=== PATIENT | male | born 1935 | race Caucasian/White ===

== ENCOUNTER 2020-02-19 09:36 | Outpatient (REF) | payer MEDICARE, MEDICAID, SELFPAY ==
[2020-02-19 11:44] LABS: MANUAL DIFF FLAG NO
[2020-02-19 11:56] LABS: Basophils Percent Auto 0.2 % (0-2); Eosinophils Absolute Auto 0.2 X10*3/uL (0.0-0.4); Eosinophils Percent Auto 1.3 % (0-4); Hematocrit 45.2 % (42-52); Hemoglobin 14.4 g/dl (14.0-18.0); Imm Gran Abs Auto 0.04 X10*3/uL (0.00-0.03); Imm Gran Pct Auto 0.4 % (0.0-0.4); Lymphocytes Absolute Auto 2.1 X10*3/uL (1.2-4.9); Lymphocytes Percent Auto 18.1 % (20-40); Mean Corpuscular HGB Conc 31.9 g/dl (31.0-36.0); Mean Corpuscular Hemoglobin 28.5 pg (27.0-33.0); Mean Corpuscular Volume 89.5 fL (80-98); Mean Platelet Volume 10.9 fL (9.4-12.4); Monocytes Absolute Auto 0.6 X10*3/uL (0.1-1.2); Monocytes Percent Auto 5.2 % (2-11); Neutrophils Absolute Auto 8.5 X10*3/uL (2.0-8.3); Neutrophils Percent Auto 74.8 % (45-73); Platelet Count 205 X10*3/uL (160-400); Red Blood Count 5.05 X10*6/uL (4.60-5.80); Red Cell Distribution Width 12.7 % (11.0-16.0); White Blood Count 11.3 X10*3/uL (4.8-10.8)
[2020-02-19 12:17] LABS: Alanine Aminotransferase 9 U/L (0-40); Albumin Level 4.1 g/dL (3.5-5.0); Alkaline Phosphatase 56 U/L (39-117); Anion Gap 10 (12-20); Aspartate Amino Transferase 14 U/L (5-37); Bilirubin Total 0.5 mg/dL (0.0-1.0); Blood Urea Nitrogen 23 mg/dL (9-16); Calcium 9.5 mg/dL (8.4-10.2); Carbon Dioxide 35 mmol/L (22-29); Chloride 101 mmol/L (96-108); Estimated Glomerular Filt Rate > 60; Glucose Random 128 mg/dL (60-115); Potassium 4.5 mmol/l (3.3-5.1); Sodium 141 mmol/L (135-145); Total Protein 6.8 g/dL (6.5-8.0)
[2020-02-19 12:37] LABS: Thyroid Stimulating Hormone 0.53 uIU/mL (0.32-4.0)
[2020-02-19 12:44] LABS: Erythrocyte Sedimentation Rate 6 MM/HR (0-15)
== END 2020-02-19 09:37 | disposition home or self-care (01) ==
LOC: HO.LAB 09:36
PROVIDERS: PCP Internal Medicine; Visit Provider Physician Assistant
DX: K59.09 Other constipation (principal); R10.11 Right upper quadrant pain; I10 Essential (primary) hypertension; R19.7 Diarrhea, unspecified; R63.4 Abnormal weight loss
CPT/HCPCS: 36415; 80053; 84443; 85025; 85652; Q3014

== ENCOUNTER → 2020-03-18 09:30 | Outpatient (BNVA) | payer MEDICARE, MEDICAID, SELFPAY | PROVIDERS: PCP Internal Medicine; Referring Provider Internal Medicine; Visit Provider Physician Assistant | DX: Z13.89 Encounter for screening for other disorder (principal) | CPT/HCPCS: Q3014 ==

== ENCOUNTER 2020-04-01 12:39 | Outpatient (REF) | payer MEDICARE, MEDICAID, SELFPAY ==
--- NOTE | 2020-04-01 12:42 | US_ITS ---
EXAMINATION: US SCROTUM CLINICAL INFORMATION: Scrotal pain. COMPARISON: None TECHNIQUE: A sonogram of the scrotum was performed assessing caputo-scale appearance and color Doppler flow. Spectral Doppler analysis of the arterial and venous flow were performed in the testes bilaterally. FINDINGS: RIGHT: Right testicle measures 4.1 x 1.9 x 2.2 cm, volume 9.2 mL. No small cyst is seen in the testes. Otherwise the testes are homogeneous. Spectral Doppler analysis of the arterial and venous flow is normal in the right testis. Right epididymal head is normal in size with a small epididymal head cyst measuring 0.1 0.1 x 0.1 cm. No right hydrocele or varicocele is seen. Right epididymal Doppler flow is normal. LEFT: Left testicle measures 3.7 x 1.9 x 2.8 cm, volume 10.6 mL. There is small anechoic cyst seen in the lower pole left testes.. Otherwise the testes are homogeneous. Spectral Doppler analysis of the arterial and venous flow is decreased in the left testis. The left testicle appeared twisted at the end of the exam with color flow preserved but decreased. Patient did have pain at this time in the left inguinal area. The left epididymal head is a cystic area seen No left hydrocele or varicocele is seen. Left epididymal Doppler flow is normal. US/US scrotum IMPRESSION: Bilateral testicular cysts. There is normal right testicular flow. There is diminished flow in the left testicle with intermittent torsion suspected. Right epididymal head cyst. Normal bilateral epididymal Doppler flow. Results were called to Tonya at Dr. Pulido's office.
== END 2020-04-01 12:40 | disposition home or self-care (01) ==
LOC: HO.US 12:39
PROVIDERS: PCP Internal Medicine; Visit Provider Internal Medicine
DX: N50.82 Scrotal pain (principal)
CPT/HCPCS: 76870

== ENCOUNTER → 2020-04-22 09:54 | Outpatient (BNVA) | payer MEDICARE, MEDICAID, SELFPAY | PROVIDERS: PCP Internal Medicine; Visit Provider Urology | DX: R10.32 Left lower quadrant pain (principal) | CPT/HCPCS: 81002; 99202 ==

== ENCOUNTER 2020-04-23 | Outpatient (REF) | payer MEDICARE, MEDICAID, SELFPAY | END 2020-04-23 00:01 | disposition home or self-care (01) | LOC: HO.VC | PROVIDERS: Visit Provider Internal Medicine | DX: Z23 Encounter for immunization (principal) | CPT/HCPCS: 0011A ==

== ENCOUNTER 2020-05-20 | Outpatient (REF) | payer MEDICARE, MEDICAID, SELFPAY | END 2020-05-20 00:01 | disposition home or self-care (01) | LOC: HO.VC | PROVIDERS: Visit Provider Internal Medicine | DX: Z23 Encounter for immunization (principal) | CPT/HCPCS: 0012A ==

== ENCOUNTER → 2020-06-10 09:30 | Outpatient (BNVA) | payer MEDICARE, MEDICAID, SELFPAY | PROVIDERS: PCP Internal Medicine; Visit Provider Urology | DX: Z13.89 Encounter for screening for other disorder (principal) | CPT/HCPCS: 99212 ==

== ENCOUNTER 2020-09-01 11:35 | Outpatient (REF) | payer MEDICARE, MEDICAID, SELFPAY ==
[2020-09-01 12:30] LABS: Hematocrit 42.7 % (42-52); Hemoglobin 13.8 g/dl (14.0-18.0); Mean Corpuscular HGB Conc 32.3 g/dl (31.0-36.0); Mean Corpuscular Hemoglobin 28.6 pg (27.0-33.0); Mean Corpuscular Volume 88.4 fL (80-98); Mean Platelet Volume 10.5 fL (9.4-12.4); Platelet Count 231 X10*3/uL (160-400); Red Blood Count 4.83 X10*6/uL (4.60-5.80); Red Cell Distribution Width 13.2 % (11.0-16.0); White Blood Count 11.6 X10*3/uL (4.8-10.8)
[2020-09-01 12:54] LABS: Alanine Aminotransferase 15 U/L (0-40); Albumin Level 4.4 g/dL (3.5-5.0); Alkaline Phosphatase 63 U/L (39-117); Anion Gap 11 (12-20); Aspartate Amino Transferase 18 U/L (5-37); Bilirubin Direct 0.3 mg/dL (0.0-0.5); Bilirubin Total 0.7 mg/dL (0.0-1.0); Blood Urea Nitrogen 24 mg/dL (9-16); Carbon Dioxide 31 mmol/L (22-29); Chloride 101 mmol/L (96-108); Cholesterol 205 mg/dL; Estimated Glomerular Filt Rate > 60; Glucose Random 70 mg/dL (60-115); HDL Cholesterol 72 mg/dL; LDL Cholesterol Calculated 117 mg/dl; Potassium 4.4 mmol/L (3.3-5.1); Sodium 139 mmol/L (135-145); Triglycerides 81 mg/dL
[2020-09-01 13:18] LABS: Thyroid Stimulating Hormone 0.53 uIU/mL (0.32-4.0)
[2020-09-05 17:02] LABS: Vitamin D 25-OH, D2 <4 ng/mL; Vitamin D 25-OH, D3 14 ng/mL; Vitamin D 25-OH, Total 14 ng/mL (30-100)
== END 2020-09-01 11:36 | disposition home or self-care (01) ==
LOC: HO.LAB 11:35
PROVIDERS: PCP Internal Medicine; Visit Provider Internal Medicine
DX: R30.0 Dysuria (principal); K59.09 Other constipation; R63.4 Abnormal weight loss
CPT/HCPCS: 36415; 80048; 80061; 80076; 82306; 84443; 85027; 87086

== ENCOUNTER → 2020-09-23 08:18 | Outpatient (BNVA) | payer MEDICARE, MEDICAID, SELFPAY | PROVIDERS: PCP Internal Medicine; Visit Provider Physician Assistant | DX: R63.4 Abnormal weight loss (principal); K59.09 Other constipation; K21.9 Gastro-esophageal reflux disease without esophagitis; Z78.9 Other specified health status | CPT/HCPCS: 99212 ==

== ENCOUNTER → 2020-11-11 08:12 | Outpatient (BNVA) | payer MEDICARE, MEDICAID, SELFPAY | PROVIDERS: PCP Internal Medicine; Visit Provider Physician Assistant | CPT/HCPCS: Q3014 ==

== ENCOUNTER 2021-05-04 11:15 | Outpatient (REF) | payer MEDICARE, MEDICAID, SELFPAY ==
[2021-05-04 12:48] LABS: Hematocrit 44.6 % (42.0-52.0); Hemoglobin 14.5 g/dl (14.0-18.0); Mean Corpuscular HGB Conc 32.5 g/dl (31.0-36.0); Mean Corpuscular Hemoglobin 28.7 pg (27.0-33.0); Mean Corpuscular Volume 88.1 fL (80.0-98.0); Mean Platelet Volume 10.6 fL (9.4-12.4); Platelet Count 184 X10*3/uL (160-400); Red Blood Count 5.06 X10*6/uL (4.60-5.80); White Blood Count 12.8 X10*3/uL (4.8-10.8)
[2021-05-04 13:14] LABS: Alanine Aminotransferase 14 U/L (0-40); Albumin Level 4.5 g/dL (3.5-5.0); Alkaline Phosphatase 55 U/L (39-117); Anion Gap 10 (12-20); Aspartate Amino Transferase 21 U/L (5-37); Bilirubin Direct 0.3 mg/dL (0.0-0.5); Bilirubin Total 0.8 mg/dL (0.0-1.0); Blood Urea Nitrogen 19 mg/dL (9-16); Calcium 10.1 mg/dL (8.4-10.2); Carbon Dioxide 35 mmol/L (22-29); Chloride 100 mmol/L (96-108); Cholesterol 187 mg/dL; Estimated Glomerular Filt Rate > 60; Glucose Random 83 mg/dL (60-115); HDL Cholesterol 67 mg/dL; LDL Cholesterol Calculated 103 mg/dl; Potassium 4.1 mmol/L (3.3-5.1); Sodium 141 mmol/L (135-145); Total Protein 7.2 g/dL (6.5-8.0); Triglycerides 86 mg/dL
[2021-05-04 13:36] LABS: Thyroid Stimulating Hormone 0.62 uIU/mL (0.32-4.0)
[2021-05-04 14:49] LABS: Appearance Urine CLEAR; Color Urine YELLOW; Glucose Urine UA NEG (NEG); Leukocyte Esterase Urine NEG (NEG); Nitrite Urine NEG (NEG); PH 5.5 (5.0-8.0); Specific Gravity - Urine >= 1.030 (1.005-1.025); Urine Blood NEG (NEG); Urine Ketones NEG (NEG); Urine Protein NEG (NEG-TRACE)
[2021-05-08 13:17] LABS: Vitamin D 25-OH, D2 77 ng/mL; Vitamin D 25-OH, D3 <4 ng/mL; Vitamin D 25-OH, Total 77 ng/mL (30-100)
== END 2021-05-04 11:16 | disposition home or self-care (01) ==
LOC: HO.LAB 11:15
PROVIDERS: Absent Provider Internal Medicine; PCP Internal Medicine; Referring Provider Internal Medicine; Visit Provider Physician Assistant
DX: K21.9 Gastro-esophageal reflux disease without esophagitis (principal); K58.9 Irritable bowel syndrome, unspecified; K59.09 Other constipation; F03.90 Unspecified dementia, unspecified severity, without behavioral disturbance, psychotic disturbance, mood disturbance, and anxiety; I10 Essential (primary) hypertension
CPT/HCPCS: 36415; 80048; 80061; 80076; 81003; 82306; 84443; 85027; 99212

== ENCOUNTER 2021-09-12 12:59 | Inpatient (IN) | payer MEDICARE, MEDICAID, SELFPAY ==
--- NOTE | ~2021-09-12 | CT_ITS ---
EXAMINATION: CT HEAD WITHOUT CONTRAST CLINICAL INFORMATION: Left-sided weakness. COMPARISON: None TECHNIQUE: Contiguous axial imaging was performed from the skull base to vertex without intravenous administration of contrast. This CT examination was performed using dose optimization techniques as appropriate, variously including the following: *Automated exposure control *Adjustment of mA and/or kV according to patient size (this includes techniques or standardized protocols for targeted exams where dose is matched to indication/reason for exam; i.e. extremities or head) *Use of iterative reconstruction technique DLP: 797 mGy-cm FINDINGS: There is no evidence of acute intracranial hemorrhage or acute territorial infarction. There is a subtle hypodensity in the right frontal deep white matter cortex slightly asymmetrically more prominent than the left side. This could be secondary to an old infarct or prominent small vessel disease. There is however periventrical hypodensities in both cerebral hemispheres from chronic small vessel ischemic changes. The lateral ventricles are enlarged and symmetrical. There is mild prominence of cortical sulci there is no abnormality seen in the posterior fossa.. Bone windows reveal no calvarial abnormality. No scalp soft tissue abnormality. Bilateral paranasal sinuses are well aerated and unremarkable. CT/CT head/brain wo con IMPRESSION: No acute intracranial process seen. Subtle hypodensity right frontal lobe deep white matter cortex likely old ischemic changes or chronic small vessel ischemia. There is no mass effect or edema. Age-related cerebral volume loss with chronic small vessel ischemic changes in both cerebral hemispheres.
--- NOTE | ~2021-09-12 | XR_ITS ---
EXAMINATION: XR CHEST CLINICAL INFORMATION: Hypoxia. COMPARISON: Chest radiograph 01/16/2007 TECHNIQUE: Frontal view of the chest was obtained. FINDINGS: Images are suboptimally oriented. Making allowances for suboptimal orientation, the cardiomediastinal silhouette is grossly normal. Mild blunting of the left costophrenic sulcus is noted. No pneumothoraces identified. No focal pulmonary consolidation visualized. Diffuse osteopenia. XR/XR chest 1V IMPRESSION: *Possible trace left pleural effusion; otherwise no definitive acute cardiopulmonary abnormalities identified. No focal pulmonary consolidation or evidence of active pulmonary edema.
--- NOTE | ~2021-09-12 | US_ITS ---
EXAMINATION: US EXTRACRANIAL CAROTID DUPLEX, BILATERAL CLINICAL INFORMATION: CVA COMPARISON: None TECHNIQUE: Real-time ultrasound and Doppler techniques (integrating B-mode 2-D vascular images, Doppler spectral analysis and color-flow Doppler imaging) were utilized to interrogate the extracranial carotid arteries, the vertebral arteries and proximal subclavian arteries bilaterally. The degree of stenosis is determined by criteria similar to NASCET. FINDINGS: Right Side: 1. There is soft atherosclerotic plaque seen in the bifurcation/proximal ICA region. 2. The common carotid artery PSV proximally is 64 cm/s and distally T8 cm/s. 3. The proximal internal carotid artery is occluded. 4. The proximal external carotid artery PSV is 149 cm/s. There is a hard plaque seen at the origin of right YOSEPH. 5. The vertebral artery shows antegrade flow. 6. The subclavian artery waveforms are normal. Left Side: 1. There is heart atherosclerotic plaque seen in the bifurcation/proximal ICA region. 2. The common carotid artery PSV proximally is 99 cm/s and distally 89 cm/s. 3. The proximal internal carotid artery velocities are 632 cm/s systolic and 294 cm/s diastolic. 4. The proximal external carotid artery PSV is 202 cm/s. 5. The vertebral artery shows 54 flow. 6. The subclavian artery waveforms are 74. US/US carotid duplex BI IMPRESSION: 1. 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 2. LEFT: 80/99% stenosis left carotid artery secondary to significant hard atherosclerotic plaque at the bulb and proximal ICA. 3. There is normal antegrade flow seen in both vertebral arteries with normal velocities in both subclavian arteries.
--- NOTE | ~2021-09-12 | MR_ITS ---
MRI OF THE BRAIN WITHOUT IV CONTRAST INDICATION: Left-sided weakness. COMPARISON: CTA head 09/13/2021. TECHNIQUE: Multiplanar multisequence MR imaging of the brain was obtained without IV contrast. FINDINGS: Multiple foci of restricted diffusion involving the right frontoparietal white matter, the left frontoparietal white matter and the left peritrigonal white matter suggesting acute infarcts in these areas. There is no mass effect and there is no hemorrhagic transformation. Nonspecific focal T2 signal changes involving the right temporal periventricular white matter on image 11 of series 5 that can be further assessed with postcontrast imaging. There is no hydrocephalus, extra-axial surface collection, or herniation. Loss of the distal cervical and portions of the intracranial right internal carotid artery flow void suggesting slow flow within versus occlusion of this vessel that can be further assessed with a CTA of the head and neck. There is no intracranial hemorrhage on the gradient recalled echo acquisition. The midline structures are normal. The cerebellar tonsils are normally positioned. The cerebellum and brainstem are normal. The craniocervical junction is normal. Osseous marrow signal intensity is homogenous. The visualized soft tissues are unremarkable. MR/MR head/brain wo con IMPRESSION: - Multiple foci of restricted diffusion involving the right frontoparietal white matter, the left frontoparietal white matter and the left peritrigonal white matter suggesting acute infarcts in these areas. There is no mass effect and there is no hemorrhagic transformation. - Loss of the distal cervical and portions of the intracranial right internal carotid artery flow void suggesting slow flow within versus occlusion of this vessel that can be further assessed with a CTA of the head and neck. - Nonspecific focal T2 signal changes involving the right temporal periventricular white matter on image 11 of series 5 that can be further assessed with postcontrast imaging. 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 Covering provider paged with these findings at 12:30 PM on 09/14/2021.
--- NOTE | ~2021-09-12 | CT_ITS ---
EXAMINATION: CT angio neck CLINICAL INFORMATION: Stroke. COMPARISON: Brain MRI 09/14/2021. TECHNIQUE: Production Lapping Machine Operator images were obtained. A CT angiogram of the neck was performed in the arterial phase after the intravenous administration of 70 mL Omnipaque 350. MIP reconstructions were generated in multiple orientations at the acquisition workstation. Multiple three-dimensional surface rendered images and maximum intensity projection images were generated on a dedicated 3-D lab workstation. Arterial stenoses are measured in accordance with NASCET criteria or similar method if applicable. This CT examination was performed using dose optimization techniques as appropriate, including one or more of the following: Automated exposure control, iterative reconstruction, and adjustment of technique factors (mA and/or kVp) according to patient size (this includes techniques or standardized protocols for targeted exams where dose is matched to indication/reason for exam). Total exam dose-length product 319 mGy-cm FINDINGS: CT angiogram neck: Scattered atheromatous calcification involves the aortic arch apex. There is a small amount of partially calcified predominantly lipid-laden atheromatous plaque at the origin of the left common carotid artery. Heavily calcified atheromatous plaque involves both carotid bifurcations. The right internal carotid artery is occluded at its origin and there is 50% stenosis at the origin of the left internal carotid artery. Lipid-laden plaque causes 50% stenosis at the origin of the left vertebral artery and 25% stenosis at the origin of the right vertebral artery. CT angiogram head: Atheromatous calcification involves the cavernous segments of both internal carotid arteries. The left intracranial internal carotid artery is patent. There is reconstitution of contrast filling the right internal carotid artery at its terminus most likely related to cross filling via the anterior communicating artery. The intradural vertebral artery segments and basilar artery are normal. Visualized portions of the anterior, middle, and posterior cerebral artery complexes are normal. Other: Soft tissues of the neck are unremarkable. There is multilevel degenerative spondylosis of the cervical spine. Grossly no evidence of spinal canal compromise. CT/CT angio neck IMPRESSION: Heavily calcified atheromatous plaque causes complete occlusion of the right internal carotid artery at its origin and there is reconstitution of contrast filling the right intracranial internal carotid artery at its terminus likely related to cross-filling via the anterior communicating artery. Heavily calcified atheromatous plaque causes 50% stenosis at the origin of the left internal carotid artery. There is also lipid-laden atheromatous plaque causing 50% stenosis at the left vertebral artery origin and 25% stenosis at the right vertebral artery origin. No intracranial large vessel occlusion.
--- NOTE | ~2021-09-12 | XR_ITS ---
EXAMINATION: XR ABDOMEN KUB CLINICAL INDICATION: Follow-up stool burden COMPARISON: None TECHNIQUE: AP view of the abdomen. FINDINGS: There is scattered gas and stool in the colon without distention. The small bowel loops loops are normal caliber. No gross bony abnormality. XR/XR KUB IMPRESSION: Mild constipation.
--- NOTE | ~2021-09-12 | CT_ITS ---
EXAMINATION: CT ABDOMEN AND PELVIS WITHOUT CONTRAST CLINICAL INFORMATION: Abdominal distention COMPARISON: None TECHNIQUE: Multidetector volumetric imaging was performed from the superior aspect of the liver through the pubic symphysis. Sagittal and coronal reformatted images were obtained on the technologist's workstation. This CT examination was performed using dose optimization techniques as appropriate, variously including the following: *Automated exposure control *Adjustment of mA and/or kV according to patient size (this includes techniques or standardized protocols for targeted exams where dose is matched to indication/reason for exam; i.e. extremities or head) *Use of iterative reconstruction technique DLP: 381 mGy-cm FINDINGS: LUNG BASES: The visualized lung bases are unremarkable. LIVER, GALLBLADDER, AND BILIARY TREE: The liver is normal in size, shape, and attenuation. No focal hepatic lesion or biliary ductal dilatation is present. The gallbladder is unremarkable with no evidence of radiopaque gallstones, gallbladder wall thickening, or obvious pericholecystic inflammatory changes. PANCREAS: Limited evaluation. No definitive finding. SPLEEN: Unremarkable. ADRENAL GLANDS: Unremarkable. KIDNEYS AND URETERS: Hydronephrosis in the kidneys. Ureters are prominent to the level of the bladder. Right renal cyst is noted BLADDER: Markedly distended GASTROINTESTINAL TRACT: The bowel pattern is overall felt to be nonobstructing. There is moderate stool in the colon and moderate rectosigmoid stool. ABDOMINAL WALL: No significant hernia is appreciated. LYMPH NODES: Normal. VASCULAR: Atherosclerotic changes PELVIC VISCERA: Mildly prominent prostate OSSEOUS STRUCTURES: Unremarkable. CT/CT abdomen pelvis wo con IMPRESSION: The bladder is markedly distended. There is hydronephrosis in the kidneys and ureters are prominent leading up to the bladder. The bowel pattern is felt to be overall obstructing. There is however moderate to marked rectosigmoid stool and moderate stool throughout the remainder the colon. Fleischner guidelines were followed.
[2021-09-12 13:10] VITALS: BP 99/64; PULSE 82; RESP 18; TEMP 36.4; O2SAT 94; BMI 19.7
--- NOTE | 2021-09-12 15:54 | ECG_ITS ---
Test Reason : ABD PAIN Blood Pressure : / mmHG Vent. Rate : 090 BPM Atrial Rate : 090 BPM P-R Int : 084 ms QRS Dur : 094 ms QT Int : 352 ms P-R-T Axes : 071 072 042 degrees QTc Int : 430 ms Sinus rhythm with short KS Nonspecific ST abnormality Abnormal ECG No previous ECGs available Referred By: Pat Manrique Electronically Signed By:GUANAKO MARTINEZ MD
--- NOTE | 2021-09-12 15:54 | ED.ABDPAIN ---
HPI - Abdominal Pain General Chief Complaint: Abdominal Pain Stated Complaint: Abd swelling/Constipated Time Seen by Provider: 09/12/21 16:40 Source: patient and family Mode of arrival: ambulatory Limitations: language barrier History of Present Illness HPI narrative: 86-year-old male presents with 6 days of constipation, has been using docusate sodium, suppositories, Mag citrate, and MiraLax. He has had episodes of constipation in the past, however usually lasts for 2 days. Patient's abdomen is distended. Has had poor p.o. intake and decreased urinary output over the past few days. Patient speaks German, patient's son is at bedside translating. No reports of fevers, chills, chest pain or pressure, weakness, cough, shortness breath. MD elicited complaint: abdominal pain Pertinent past history: constipation Onset (ago): day(s) (6) Pain Consistency: constant Location: diffuse Severity: severe Pain scale (0-10): 9 Quality: cramping, aching and fullness Radiation: none Migration to: no migration Exacerbating factors: eating and movement Relieving factors: nothing Associated symptoms: nausea, constipation and anorexia Related Data Previous Rx's Medication Instructions Recorded paroxetine HCl 20 mg tablet 20 mg PO BEDTIME #90 tabs 02/28/21 metoprolol succinate 25 mg 25 mg PO DAILY 90 days #90 tabs 05/19/21 tablet,extended release 24 hr ergocalciferol (vitamin D2) 1,250 1,250 mcg PO QWEEK #12 caps 05/20/21 mcg (50,000 unit) capsule simethicone 125 mg chewable tablet 125 mg PO TID-QID PRN abdominal 06/25/21 (Gas Relief (simethicone)) distention #90 tabs lisinopril 40 mg tablet 40 mg PO DAILY #90 tabs 07/06/21 simvastatin 40 mg tablet 40 mg PO DAILY #90 tabs 07/06/21 clonazepam 0.25 mg disintegrating 0.25 mg PO BID #60 tabs 07/29/21 tablet famotidine 20 mg tablet 20 mg PO DAILY PRN for indigestion 07/30/21 #90 tabs lactulose 10 gram/15 mL oral 10 g (15 mL) PO BEDTIME #237 mL 09/10/21 solution mirtazapine 7.5 mg tablet 7.5 mg PO BEDTIME #30 tabs 09/10/21 Allergies Allergy/AdvReac Type Severity Reaction Status Date / Time No Known Allergies Allergy Verified 09/10/21 13:35 Review of Systems Review of Systems Constitutional: No Fever, No Chills ENT/Mouth: No Ear Pain, No Hoarseness, No sore throat Eyes: No Eye Pain, No Swelling, No Redness, No Foreign Body Cardiovascular: No Chest Pain, No SOB Respiratory: No Cough, No Dyspnea Gastrointestinal: No Nausea, No Vomiting, No Diarrhea, No abdominal Pain Genitourinary: No Dysuria, No Hematuria Musculoskeletal: positive joint pain, No Myalgias, No Joint Swelling Skin: No Skin lacerations, No rash Neuro: No Weakness, No Numbness, No Paresthesias, No Loss of Consciousness, No Dizziness, No Headache Psych: No Anxiety/Panic, No Depression Heme/Lymph: no easy bruising, no Lymphadenopathy Endocrine: No Polyuria, No Polydipsia Yes all other systems are reviewed and are negative [facility] Past Medical History Attestation statement: The following information was validated with the patient. Source: old records reviewed Medical History GERD (gastroesophageal reflux disease) H/O urinary retention Urethral stricture Surgical History History of prostate surgery Family History Family History Father No problems noted. Mother No problems noted. Son No problems noted. Social History Social History Household Members Other:: lives with - adult children involved Housing: Apartment Alcohol intake: never Patient Tobacco Use Status: Former Tobacco user e-Cigarette/Vaping Use: Never Used Second Hand Smoke Exposure: No Advance Directives: No Advance Directives Information Provided: No service: No Current occupational status: retired Cognitive needs: No Hearing needs: No Vision needs: No Physical Exam ED Vital Signs: Vital Signs - 24 hr 09/12/21 13:10 09/12/21 15:59 09/12/21 18:12 Temperature 97.6 F 98.7 F 97.9 F Pulse Rate 82 90 89 Respiratory Rate 18 16 14 Blood Pressure 99/64 130/79 145/87 H Pulse Oximetry 94 98 95 Oxygen Delivery Method Room Air Room Air Room Air 09/12/21 18:58 09/12/21 20:00 Temperature 97.9 F 98.4 F Pulse Rate 84 90 Respiratory Rate 16 16 Blood Pressure 147/81 H 169/78 H Pulse Oximetry 98 95 Oxygen Delivery Method Room Air Room Air BMI result Body Mass Index 19.7 Appearance: Alert. Oriented X3. Moderate distress. Eyes: Pupils equal, round and reactive to light. ENT: Pharynx normal. Dry mucous membranes. Neck: Normal inspection. Neck supple. CVS: Normal heart rate and rhythm. Pulses normal. Respiratory: No respiratory distress. Breath sounds normal. Abdomen: Hard, distended, hyperactive bowel sounds. Skin: Skin warm and dry. Normal skin color. Normal skin turgor. Extremities: +2 edema bilaterally. Moves all extremities against resistance. Neuro: No motor deficit. No sensory deficit. Cranial nerves 2-12 intact Course Course Course Narrative: 86-year-old male presents with family at bedside for 6 days of constipation, abdominal distention, decreased urinary output, decreased p.o. intake, and discomfort. Family states that he normally has constipation but usually lasts for about 2 days. They have given him multiple [id number] medications and rectal suppositories with 0 effect. Patient's abdomen is distended, palpable bladder, most likely constipation with bladder outlet obstruction secondary to constipation. Will disimpact. 17:41 white count 21. Order for Zosyn, L of fluid was started at 17:[address]impaction. [address] abdomen pelvis is still pending. Moderate amount of soft brown stool on digital disimpaction. One Fleet enema and to soapsuds enemas given over the past 2 hours. Patient has evacuated water but has not been able to produce a significant bowel movement after disimpaction, Fleet's enema, and soapsuds enema. CT scan was completed status post disimpaction and enemas. Shows moderate amounts of stool with obstruction. Johnson catheter placed for fluid management, bilateral hydronephrosis noted most likely due to outlet obstruction. Discussion with hospitalist, plan of care is to admit for constipation with obstruction and bladder outlet obstruction secondary to constipation. Consultations Consultation #1: kylah Time: 20:42 MDM - Abdominal Pain Differential Diagnosis Differential diagnosis: Likely abdominal pain, bowel perforation, constipation and small bowel obstruction Medical Records Attestation: I reviewed the patient's medical records. Lab Data Attestation: I reviewed the patient's lab results. Result diagrams: 09/12/21 16:28 09/12/21 16:28 Labs: Lab Results 09/12/21 09/12/21 09/12/21 Range/Units 16:28 16:28 16:28 WBC 21.0 H (4.8-10.8) X10*3/uL RBC 4.14 L (4.60-5.80) X10*6/uL Hgb 11.8 L (14.0-18.0) g/dl Hct 38.1 L (42.0-52.0) % MCV 92.0 (80.0-98.0) fL MCH 28.5 (27.0-33.0) pg MCHC 31.0 (31.0-36.0) g/dl RDW 12.3 (11.0-16.0) % Plt Count 296 D (160-400) X10*3/uL MPV 9.9 (9.4-12.4) fL Immature Gran % (Auto) 1.6 H (0.0-0.4) % Neut % (Auto) 81.7 H (45-73) % Lymph % (Auto) 10.1 L (20-40) % [place] % (Auto) 5.8 (2-11) % Eos % (Auto) 0.6 (0-4) % Baso % (Auto) 0.2 (0-2) % Lymph # (Auto) 2.1 (1.2-4.9) X10*3/uL [place] # (Auto) 1.2 (0.1-1.2) X10*3/uL Eos # (Auto) 0.1 (0.0-0.4) X10*3/uL Baso # (Auto) 0.0 (0.0-0.2) X10*3/uL Abs Immat Gran (auto) 0.34 H (0.00-0.03) X10*3/uL Absolute Neuts (auto) 17.2 H (2.0-8.3) x10*3/uL Absolute Nucleated RBC 0.000 (0.0-0.012) X10*3/uL Nucleated RBC % (auto) 0.0 (0.0-0.2) /100WBC Sodium 141 (135-145) mmol/L Potassium 5.1 D (3.3-5.1) mmol/L Chloride 105 (96-108) mmol/L Carbon Dioxide 26 (22-29) mmol/L Anion Gap 15 (12-20) BUN 41 H D (9-16) mg/dL Creatinine 1.97 H (0.5-1.4) mg/dL Estim Creat Clear Calc 22.4 Estimated GFR 32 Random Glucose 90 (60-115) mg/dL Lactic Acid (0.5-2.0) mmol/L Calcium 9.3 D (8.4-10.2) mg/dL Magnesium 1.9 (1.6-2.6) mg/dL Total Bilirubin 0.3 (0.0-1.0) mg/dL Direct Bilirubin 0.2 (0.0-0.5) mg/dL AST 27 (5-37) U/L ALT 40 (0-40) U/L Alkaline Phosphatase 145 H D (39-117) U/L Troponin I High Sens 9.9 (<3.5-35.0) ng/L Total Protein 6.7 (6.5-8.0) g/dL Albumin 3.4 L D (3.5-5.0) g/dL Urine Color Urine Appearance Urine pH (5.0-8.0) Ur Specific [place] (1.005-1.025) Urine Protein (NEG-TRACE) MG/DL Urine Glucose (UA) (NEG) MG/DL Urine Ketones (NEG) MG/DL Urine Blood (NEG) Urine Nitrite (NEG) Ur Leukocyte Esterase (NEG) Urine RBC (0) /HPF Urine WBC (0-4) /HPF Ur Squamous Epith Cells /LPF Urine Bacteria /LPF 09/12/21 09/12/21 Range/Units 19:09 21:28 WBC (4.8-10.8) X10*3/uL RBC (4.60-5.80) X10*6/uL Hgb (14.0-18.0) g/dl Hct (42.0-52.0) % MCV (80.0-98.0) fL MCH (27.0-33.0) pg MCHC (31.0-36.0) g/dl RDW (11.0-16.0) % Plt Count (160-400) X10*3/uL MPV (9.4-12.4) fL Immature Gran % (Auto) (0.0-0.4) % Neut % (Auto) (45-73) % Lymph % (Auto) (20-40) % [place] % (Auto) (2-11) % Eos % (Auto) (0-4) % Baso % (Auto) (0-2) % Lymph # (Auto) (1.2-4.9) X10*3/uL [place] # (Auto) (0.1-1.2) X10*3/uL Eos # (Auto) (0.0-0.4) X10*3/uL Baso # (Auto) (0.0-0.2) X10*3/uL Abs Immat Gran (auto) (0.00-0.03) X10*3/uL Absolute Neuts (auto) (2.0-8.3) x10*3/uL Absolute Nucleated RBC (0.0-0.012) X10*3/uL Nucleated RBC % (auto) (0.0-0.2) /100WBC Sodium (135-145) mmol/L Potassium (3.3-5.1) mmol/L Chloride (96-108) mmol/L Carbon Dioxide (22-29) mmol/L Anion Gap (12-20) BUN (9-16) mg/dL Creatinine (0.5-1.4) mg/dL Estim Creat Clear Calc Estimated GFR Random Glucose (60-115) mg/dL Lactic Acid 0.9 (0.5-2.0) mmol/L Calcium (8.4-10.2) mg/dL Magnesium (1.6-2.6) mg/dL Total Bilirubin (0.0-1.0) mg/dL Direct Bilirubin (0.0-0.5) mg/dL AST (5-37) U/L ALT (0-40) U/L Alkaline Phosphatase (39-117) U/L Troponin I High Sens (<3.5-35.0) ng/L Total Protein (6.5-8.0) g/dL Albumin (3.5-5.0) g/dL Urine Color YELLOW Urine Appearance CLEAR Urine pH 6.0 (5.0-8.0) Ur Specific [place] 1.010 (1.005-1.025) Urine Protein 1+ H (NEG-TRACE) MG/DL Urine Glucose (UA) NEG (NEG) MG/DL Urine Ketones NEG (NEG) MG/DL Urine Blood 2+ H (NEG) Urine Nitrite NEG (NEG) Ur Leukocyte Esterase 3+ H (NEG) Urine RBC 5-9 H (0) /HPF Urine WBC 15-29 H (0-4) /HPF Ur Squamous Epith Cells TRACE /LPF Urine Bacteria 3+ /LPF Imaging Data CT scan - abdomen: Attestation: I personally reviewed and interpreted this imaging study as follows: Radiologist's impression: FINDINGS: LUNG BASES: The visualized lung bases are unremarkable.? LIVER, GALLBLADDER, AND BILIARY TREE: The liver is normal in size, shape, and attenuation. No focal hepatic lesion or biliary ductal dilatation is present. The gallbladder is unremarkable with no evidence of radiopaque gallstones, gallbladder wall thickening, or obvious pericholecystic inflammatory changes.? PANCREAS: Limited evaluation. No definitive finding. SPLEEN: Unremarkable.? ADRENAL GLANDS: Unremarkable.? KIDNEYS AND URETERS: Hydronephrosis in the kidneys. Ureters are prominent to the level of the bladder.? Right renal cyst is noted BLADDER: Markedly distended? GASTROINTESTINAL TRACT: The bowel pattern is overall felt to be nonobstructing. There is moderate stool in the colon and moderate rectosigmoid stool.? ABDOMINAL WALL: No significant hernia is appreciated.? LYMPH NODES: Normal. VASCULAR: Atherosclerotic changes PELVIC VISCERA: Mildly prominent prostate? OSSEOUS STRUCTURES: Unremarkable.? CT/CT abdomen pelvis wo con IMPRESSION: The bladder is markedly distended. There is hydronephrosis in the kidneys and ureters are prominent leading up to the bladder. ? The bowel pattern is felt to be overall obstructing. There is however moderate to marked rectosigmoid stool and moderate stool throughout the remainder the colon. ? ? ? Fleischner guidelines were followed. ECG Data Attestation: I personally reviewed and interpreted this ECG as follows: ECG interpretation date: 09/12/21 ECG interpretation time: 16:06 Prior ECG tracings: available for review Interpretation: Vent. rate 90 BPM RI interval 84 ms QRS duration 94 ms QT/QTc 352/430 ms P-R-T axes 71 72 42 Sinus rhythm with short RI Nonspecific ST abnormality Abnormal ECG No previous ECGs available Discharge Plan Discharge Clinical Impression: Constipation, Bladder outflow obstruction Patient Disposition: Admitted As Inpatient
[2021-09-12 15:59] VITALS: BP 130/79; PULSE 90; RESP 16; TEMP 37.1; O2SAT 98
[2021-09-12 16:34] LABS: MANUAL DIFF FLAG NO
[2021-09-12 16:41] LABS: Basophils Percent Auto 0.2 % (0-2); Eosinophils Absolute Auto 0.1 X10*3/uL (0.0-0.4); Eosinophils Percent Auto 0.6 % (0-4); Hematocrit 38.1 % (42.0-52.0); Hemoglobin 11.8 g/dl (14.0-18.0); Imm Gran Abs Auto 0.34 X10*3/uL (0.00-0.03); Imm Gran Pct Auto 1.6 % (0.0-0.4); Lymphocytes Absolute Auto 2.1 X10*3/uL (1.2-4.9); Lymphocytes Percent Auto 10.1 % (20-40); Mean Corpuscular Hemoglobin 28.5 pg (27.0-33.0); Mean Platelet Volume 9.9 fL (9.4-12.4); Monocytes Absolute Auto 1.2 X10*3/uL (0.1-1.2); Monocytes Percent Auto 5.8 % (2-11); Neutrophils Absolute Auto 17.2 x10*3/uL (2.0-8.3); Neutrophils Percent Auto 81.7 % (45-73); Platelet Count 296 X10*3/uL (160-400); Red Blood Count 4.14 X10*6/uL (4.60-5.80); Red Cell Distribution Width 12.3 % (11.0-16.0)
[2021-09-12] MEDS: Sodium Phosphate,Mono-Dibasic 133 ML ENEMA PR (16:45)
[2021-09-12 16:55] LABS: Alanine Aminotransferase 40 U/L (0-40); Albumin Level 3.4 g/dL (3.5-5.0); Alkaline Phosphatase 145 U/L (39-117); Anion Gap 15 (12-20); Aspartate Amino Transferase 27 U/L (5-37); Bilirubin Direct 0.2 mg/dL (0.0-0.5); Bilirubin Total 0.3 mg/dL (0.0-1.0); Blood Urea Nitrogen 41 mg/dL (9-16); Calcium 9.3 mg/dL (8.4-10.2); Carbon Dioxide 26 mmol/L (22-29); Chloride 105 mmol/L (96-108); Creatinine Clr Calc Pharmacy 22.4; Estimated Glomerular Filt Rate 32; Glucose Random 90 mg/dL (60-115); Magnesium 1.9 mg/dL (1.6-2.6); Potassium 5.1 mmol/L (3.3-5.1); Sodium 141 mmol/L (135-145); Total Protein 6.7 g/dL (6.5-8.0)
[2021-09-12 17:01] LABS: Troponin-I High Sensitivity 9.9 ng/L (<3.5-35.0)
--- NOTE | 2021-09-12 17:07 | PC.NURSE ---
Fleet enema administered by provider
[2021-09-12] MEDS: 0.9 % Sodium Chloride 1,000 ML 999 ML IVCONT (17:46)
[2021-09-12 18:12] VITALS: BP 145/87; PULSE 89; RESP 14; TEMP 36.6; O2SAT 95
--- NOTE | 2021-09-12 18:17 | PC.NURSE ---
antibiotic not started due to cultures needing to be drawn. Awaiting blood cultures.
--- NOTE | 2021-09-12 18:48 | PC.NURSE ---
pt a hard poke, difficult to obtain cultures, will need to hang ABX late following culture obtainment
[2021-09-12 18:58] VITALS: BP 147/81; PULSE 84; RESP 16; TEMP 36.6; O2SAT 98
[2021-09-12 19:26] LABS: Lactic Acid 0.9 mmol/L (0.5-2.0)
--- NOTE | 2021-09-12 19:32 | PC.NURSE ---
PATIENT WAS ASSISTED TO BEDSIDE COMMODE ,DID NOT POOP MUCH ,EMLEY WHEAT AND PROVIDER TROY AWARE ,PATIENT BACK IN BED .
[2021-09-12 20:00] VITALS: BP 169/78; PULSE 90; RESP 16; TEMP 36.9; O2SAT 95
[2021-09-12] MEDS: Piperacillin Sodium/Tazobactam 3.375 GM in 0.9 % Sodium Chloride 50 ML IV (20:19)
[2021-09-12] MEDS: Lidocaine HCl 2 % Urojet 10 ML JEL.PF.APP TOPICAL (20:53)
--- NOTE | 2021-09-12 21:24 | PC.NURSE ---
Johnson catheter placed per MD order. 2,300 ml of urine output noted. Dr Alcocer notified. Will monitor closely.
[2021-09-12 21:35] LABS: Appearance Urine CLEAR; Color Urine YELLOW; Glucose Urine UA NEG (NEG); Leukocyte Esterase Urine 3+ (NEG); Nitrite Urine NEG (NEG); UACC Culture Trigger YES; Urine Blood 2+ (NEG); Urine Ketones NEG (NEG); Urine Protein 1+ MG/DL (NEG-TRACE)
[2021-09-12 22:02] VITALS: BP 161/80; PULSE 89; RESP 16; TEMP 36.8; O2SAT 94
--- NOTE | 2021-09-12 22:04 | PM.IMHP ---
History of Present Illness Date of Service: 09/12/21 Chief Complaint: mireille This is an 86-year-old Belarusian speaking man with past medical history of hypertension, GERD, chronic constipation, depression anxiety who presents to the hospital with complaints of severe constipation. Patient last bowel movement was 7 days ago, patient was started on lactulose on Tuesday but has not had a bowel movement since. Patient reports abdominal pain, no nausea or vomiting, no chest pain, no shortness of breath, no headache or change in vision, reports decreased urine output, no dysuria, and no lower extremity edema. No fever or chills On initial arrival to the ED patient hemodynamically stable with no significant abnormal vitals Labs are significant for WBC count of WBC count of 21,000, hemoglobin 11.8, hematocrit 38.1, BUN of 41, creatinine of 1.97, with a baseline around 1.04, UA that is positive for leukocyte Estrace, WBC Abdominal pelvic CT showed distended bladder, hydronephrosis in the kidneys and uterus, obstructing bowel pattern, there is also moderate to marked rectosigmoid stool and moderate stool throughout the remainder of the colon. Patient was manually disimpacted in the ED, given multiple enemas but continues to be severely constipated Review of Systems Review of Systems: Yes all other systems are reviewed and are negative [facility] Medical History (Updated 09/13/21 @ 06:06 by Nkechi Ji MD) Chronic constipation Dementia Depression GERD (gastroesophageal reflux disease) H/O urinary retention HTN (hypertension) IBS (irritable bowel syndrome) Urethral stricture Family History Father No problems noted. Mother No problems noted. Son No problems noted. Surgical History History of prostate surgery Social History Household Members Other:: lives with - adult children involved Housing: Apartment Alcohol intake: never Patient Tobacco Use Status: Former Tobacco user Smoked in Last 30 Days: No e-Cigarette/Vaping Use: Never Used Patient Interested in Nicotine Replacement: No Patient Given Instructions on How to Stop Smoking: No Second Hand Smoke Exposure: No Advance Directives: No Advance Directives Information Provided: No service: No Current occupational status: retired Cognitive needs: No Hearing needs: No Vision needs: No Meds Allergies Allergy/AdvReac Type Severity Reaction Status Date / Time No Known Allergies Allergy Verified 09/10/21 13:35 Active Medications: Current Medications Pharmacy Consult (Consult Rx Perform Med Rec) 1 each MISCELLANE ONCE STA Stop: 09/12/21 20:41 Physical Exam Vital Signs and Narrative: Vital Signs: Last Vital Signs Temp 98.4 F 09/12/21 20:00 Pulse 90 09/12/21 20:00 Resp 16 09/12/21 20:00 BP 169/78 H 09/12/21 20:00 Pulse Ox 95 09/12/21 20:00 O2 Del Method 09/12/21 20:00 BMI result Body Mass Index 19.7 Const: General: cooperative and no acute distress Eyes: General: appearance normal, both eyes and all related structures Resp: Effort & Inspection: normal respiratory effort Auscultation: clear to auscultation bilaterally Cardio: Rate: regular rate Rhythm: regular rhythm GI: Other: Patient has a hard ball distension like in the lower abdomen, no rebound or guarding Palpation (GI): Soft to palpation Auscultation: normal bowel sounds Skin: General skin exam: no rashes or lesions noted Neuro: Cognition (Neuro): normal cognition Extrem: General: Yes normal to inspection and Yes no pedal edema Results Labs CBC and Chem 7: 09/12/21 16:28 09/12/21 16:28 Labs: Laboratory Results - last 24 hr 09/12/21 09/12/21 09/12/21 16:28 16:28 16:28 MCV 92.0 MCH 28.5 MCHC 31.0 RDW 12.3 Plt Count 296 D MPV 9.9 Immature Gran % (Auto) 1.6 H Neut % (Auto) 81.7 H Lymph % (Auto) 10.1 L [place] % (Auto) 5.8 Eos % (Auto) 0.6 Baso % (Auto) 0.2 Lymph # (Auto) 2.1 [place] # (Auto) 1.2 Eos # (Auto) 0.1 Baso # (Auto) 0.0 Abs Immat Gran (auto) 0.34 H Absolute Neuts (auto) 17.2 H Absolute Nucleated RBC 0.000 Nucleated RBC % (auto) 0.0 Anion Gap 15 Estim Creat Clear Calc 22.4 Estimated GFR 32 Random Glucose 90 Lactic Acid Calcium 9.3 D Magnesium 1.9 Total Bilirubin 0.3 Direct Bilirubin 0.2 AST 27 ALT 40 Alkaline Phosphatase 145 H D Troponin I High Sens 9.9 Total Protein 6.7 Albumin 3.4 L D Urine Color Urine Appearance Urine pH Ur Specific [place] Urine Protein Urine Glucose (UA) Urine Ketones Urine Blood Urine Nitrite Ur Leukocyte Esterase 09/12/21 09/12/21 19:09 21:28 MCV MCH MCHC RDW Plt Count MPV Immature Gran % (Auto) Neut % (Auto) Lymph % (Auto) [place] % (Auto) Eos % (Auto) Baso % (Auto) Lymph # (Auto) [place] # (Auto) Eos # (Auto) Baso # (Auto) Abs Immat Gran (auto) Absolute Neuts (auto) Absolute Nucleated RBC Nucleated RBC % (auto) Anion Gap Estim Creat Clear Calc Estimated GFR Random Glucose Lactic Acid 0.9 Calcium Magnesium Total Bilirubin Direct Bilirubin AST ALT Alkaline Phosphatase Troponin I High Sens Total Protein Albumin Urine Color YELLOW Urine Appearance CLEAR Urine pH 6.0 Ur Specific [place] 1.010 Urine Protein 1+ H Urine Glucose (UA) NEG Urine Ketones NEG Urine Blood 2+ H Urine Nitrite NEG Ur Leukocyte Esterase 3+ H Imaging Radiologist's Impressions: Impressions Abdomen/Pelvis CT 09/12/21 19:33 IMPRESSION: The bladder is markedly distended. There is hydronephrosis in the kidneys and ureters are prominent leading up to the bladder. The bowel pattern is felt to be overall obstructing. There is however moderate to marked rectosigmoid stool and moderate stool throughout the remainder the colon. Fleischner guidelines were followed. Assessment and Plan (1) Small bowel obstruction: Status: Acute (2) Bladder outflow obstruction: Status: Acute (3) Constipation: Status: Acute (4) UTI (urinary tract infection): Status: Acute (5) TYRESE (acute kidney injury): Status: Acute Plan 86-year-old male with past medical history of chronic constipation presents the hospital with constipation x7 days # severe constipation - has pattern of bowel obstruction on CT of the abdomen with marked rectosigmoid stool and moderate stool throughout the remainder of the colon - patient underwent manual fecal disimpaction in the ED with minimal relief - received 2 enemas with no BM - will start him on bowel regimen including MiraLax, docusate - patient has evidence of bowel obstruction, will keep NPO for now - consult GI # small-bowel obstruction - likely secondary to constipation - seen on CT with bowel obstruction pattern - will keep NPO - IV fluids # bladder outflow obstruction - due to severe constipation - patient also has a TI - status post Johnson catheter insertion # UTI - secondary to above - afebrile, has leukocytosis with no evidence of sepsis - will treat with IV antibiotics - follow cultures # TYRESE - likely postobstructive, , has hydronephrosis - due to severe constipation and bladder outflow obstruction - Johnson catheter in place - IV fluids - follow BMP # hypertension - stable - will hold lisinopril in the setting of TYRESE # depression anxiety - continue home medications DVT ppx: lovenox Need for admission and hospitalization: Pt has severe constipation causing TYRESE, and bladder outflow obstruction and will require a min 2 night hospital stay for further management and monitoring Quality Stroke Does the patient have a stroke diagnosis?: No VTE Prior VTE?: No VTE Risk Level:: Medical - low VTE Device Contraindication: Treatment Not Indicated VTE Drug Contraindication: Treatment Not Indicated
[2021-09-12 22:31] LABS: Bacteria Urine 3+ /LPF; Squamous Epithelial Cell Urine TRACE /LPF
[2021-09-12 22:34] LABS: COVID-19 Test Negative (Negative); IDNOW Serial# 55D5AD1C
[2021-09-12] MEDS: Docusate Sodium 100 MG CAPSULE PO (23:12)
[2021-09-12] MEDS: polyethylene glycoL 3350 17 GM POWD.PACK PO (23:12)
[2021-09-13] MEDS: 0.9 % Sodium Chloride Flush 3 ML SYRINGE IVFLUSH ×4 (01:33→20:48)
[2021-09-13 03:07] VITALS: BP 176/85; PULSE 103; RESP 18; TEMP 36.7; O2SAT 95
[2021-09-13] MEDS: cefTRIAXone sodium 1 GM in 0.9 % Sodium Chloride 50 ML IV (06:42)
[2021-09-13] MEDS: Lactated Ringers 1,000 ML 100 ML IVCONT (06:43)
[2021-09-13 07:19] LABS: MANUAL DIFF FLAG NO
--- NOTE | 2021-09-13 07:31 | PHA.MEDREC ---
Pharmacy Consult ? Medication Reconciliation Pharmacy has completed the medication reconciliation. Reviewed med rec done by Ninfa Montenegro.
[2021-09-13 07:40] LABS: Basophils Percent Auto 0.1 % (0-2); Eosinophils Absolute Auto 0.1 X10*3/uL (0.0-0.4); Eosinophils Percent Auto 0.4 % (0-4); Hematocrit 40.3 % (42.0-52.0); Hemoglobin 12.5 g/dl (14.0-18.0); Imm Gran Abs Auto 0.32 X10*3/uL (0.00-0.03); Imm Gran Pct Auto 1.6 % (0.0-0.4); Lymphocytes Absolute Auto 1.8 X10*3/uL (1.2-4.9); Lymphocytes Percent Auto 8.9 % (20-40); Mean Corpuscular Hemoglobin 28.1 pg (27.0-33.0); Mean Corpuscular Volume 90.6 fL (80.0-98.0); Mean Platelet Volume 9.9 fL (9.4-12.4); Monocytes Percent Auto 4.9 % (2-11); Neutrophils Percent Auto 84.1 % (45-73); Platelet Count 314 X10*3/uL (160-400); Red Blood Count 4.45 X10*6/uL (4.60-5.80); Red Cell Distribution Width 12.3 % (11.0-16.0); White Blood Count 20.2 X10*3/uL (4.8-10.8)
[2021-09-13 07:53] LABS: Anion Gap 16 (12-20); Blood Urea Nitrogen 37 mg/dL (9-16); Calcium 9.1 mg/dL (8.4-10.2); Carbon Dioxide 26 mmol/L (22-29); Chloride 107 mmol/L (96-108); Creatinine Clr Calc Pharmacy 27.1; Estimated Glomerular Filt Rate 40; Glucose Random 70 mg/dL (60-115); Potassium 4.7 mmol/L (3.3-5.1); Sodium 144 mmol/L (135-145)
[2021-09-13 08:00] VITALS: BP 175/85; PULSE 100; RESP 18; TEMP 36.6; O2SAT 93
[2021-09-13] MEDS: clonazePAM 0.5 MG TABLET 0.25 MG PO ×2 (09:38→20:46)
[2021-09-13] MEDS: Tamsulosin HCL 0.4 MG CAPSULE PO (09:39)
[2021-09-13] MEDS: polyethylene glycoL 3350 17 GM POWD.PACK PO (09:39)
[2021-09-13] MEDS: Atorvastatin Calcium 20 MG TABLET PO (09:39)
[2021-09-13] MEDS: Docusate Sodium 100 MG CAPSULE PO ×2 (09:39→20:46)
[2021-09-13 11:29] LABS: TSH reflex Free T4 1.11 uIU/mL (0.32-4.0)
--- NOTE | 2021-09-13 11:29 | PM.GICN ---
History of Present Illness Data of Consult Service Date: 09/13/21 Requesting physician: Nkechi Ji Primary Care Provider: Joel Christianson MD [facility] Reason for consult: severe constipation 86-year-old Bosnian speaking man with hypertension, GERD, chronic constipation, depression anxiety came to [facility] on 09/12/21 with severe constipation.? Patient's last bowel movement was 7 days ago, patient was started on lactulose on Tuesday but has not had a bowel movement since.? Patient reports abdominal pain, no nausea or vomiting, no chest pain, no shortness of breath, no headache or change in vision, reports decreased urine output, no dysuria, and no lower extremity edema.? No fever or chills On initial arrival to the ED patient hemodynamically stable with no significant abnormal vitals Labs are significant for WBC count of WBC count of 21,000, hemoglobin 11.8, hematocrit 38.1, BUN of 41, creatinine of 1.97, with a baseline around 1.04, UA that is positive for leukocyte Estrace, WBC Patient was manually disimpacted in the ED, given multiple enemas but continues to be severely constipated Pt was admitted and started on Colace 100 mg twice daily, Miralax once daily, lactulose at bedtime and MOM prn. Hx obtained from patient's daughter and son who were at the bedside. Daughter reports Pt was hospitalized at [facility] a month ago with weakness and found to be dehydrated. Pt noted to have left sided weakness since discharge from the hospital. Previously he had a BM every 1-2 days and no BM since last Tuesday - 09/06/21. Daughter denies pt having black stools or rectal bleeding. Brought to [facility] with marked abdominal distension which has improved since Johnson's catheter was placed. Pt has a good appetite and has lost 5 lbs over the past month (from 135 to 130 lbs) Pt is and lives with his . His 46 year old son Jan, 2020 with Covid and pt has been depressed and more forgetful since then. Pt quitted smoking 20 yrs ago and denies ETOH abuse. He snores at night and denies sleep apnea. 09/12/[address] SCAN SHOWED: The bladder is markedly distended. There is hydronephrosis in the kidneys and ureters are prominent leading up to the bladder. ? The bowel pattern is felt to be overall obstructing. There is however moderate to marked rectosigmoid stool and moderate stool throughout the remainder the colon. Review of Systems Review of Systems: Yes all other systems are reviewed and are negative Constitutional: Constitutional: Reports weakness and Reports weight loss Cardiovascular: Cardiovascular: Denies chest pain Gastrointestinal: Gastrointestinal: Denies hematochezia and Reports constipation Genitourinary: Genitourinary: Reports oliguria Neurologic: Reports focal weakness (left sided weakness) and Reports weakness PMFSH Past Medical History Medical History (Updated 09/13/21 @ 06:06 by Nkechi Ji MD) Chronic constipation Dementia Depression GERD (gastroesophageal reflux disease) H/O urinary retention HTN (hypertension) IBS (irritable bowel syndrome) Urethral stricture Family History Family History Father No problems noted. Mother No problems noted. Son No problems noted. Surgical History Surgical History History of prostate surgery Social History Social History Household Members Other:: lives with - adult children involved Housing: Apartment Alcohol intake: never Patient Tobacco Use Status: Former Tobacco user Smoked in Last 30 Days: No e-Cigarette/Vaping Use: Never Used Patient Interested in Nicotine Replacement: No Patient Given Instructions on How to Stop Smoking: No Second Hand Smoke Exposure: No Advance Directives: No Advance Directives Information Provided: No service: No Current occupational status: retired Cognitive needs: No Hearing needs: No Vision needs: No Meds Allergies Allergy/AdvReac Type Severity Reaction Status Date / Time No Known Allergies Allergy Verified 09/10/21 13:35 Active Medications: Current Medications Acetaminophen (Acetaminophen 325 Mg Tablet) 650 mg PO Q6H PRN PRN Reason: Pain, Mild (Pain Scale 1-3) Atorvastatin Calcium (Atorvastatin Calcium 20 Mg Tablet) 20 mg PO DAILY [facility] Last Admin: 09/13/21 09:39 Dose: 20 mg Clonazepam (Clonazepam 0.5 Mg Tablet) 0.25 mg PO BID [facility] Last Admin: 09/13/21 09:38 Dose: 0.25 mg Docusate Sodium (Docusate Sodium 100 Mg Capsule) 100 mg PO BID [facility] Last Admin: 09/13/21 09:39 Dose: 100 mg Ergocalciferol (Ergocalciferol (Vitamin D2) 1,250 Mcg Capsule) 1,250 mcg PO Fr [facility] Ceftriaxone Sodium 1 gm/ (Sodium Chloride) 50 mls @ 100 mls/hr IV Q24H [facility] Last Admin: 09/13/21 06:42 Dose: 100 mls/hr Lactulose (Lactulose 20 Gm/30 Ml Solution) 10 gm PO BEDTIME [facility] Magnesium Hydroxide (Milk Of Magnesia 30 Ml Oral.Susp) 30 ml PO DAILY PRN PRN Reason: Constipation Mineral Oil (Mineral Oil Enema 133 Ml Enema) 133 ml [place] DAILY PRN PRN Reason: constipation Mirtazapine (Mirtazapine 7.5 Mg Tablet) 7.5 mg PO BEDTIME [facility] Ondansetron HCl (Ondansetron Hcl 4 Mg/2 Ml Vial) 4 mg IVPUSH Q8H PRN PRN Reason: Nausea and Vomiting Paroxetine HCl (Paroxetine Hcl 20 Mg Tablet) 20 mg PO BEDTIME [facility] Polyethylene Glycol (Polyethylene Glycol 3350 17 Gm Powd.Pack) 17 gm PO DAILY [facility] Last Admin: 09/13/21 09:39 Dose: 17 gm Sodium Chloride (0.9 % Sodium Chloride Flush 3 Ml Syringe) 3 ml IVFLUSH QSHIFT [facility] Last Admin: 09/13/21 09:40 Dose: 3 ml Tamsulosin HCl (Tamsulosin Hcl 0.4 Mg Capsule) 0.4 mg PO DAILY [facility] Last Admin: 09/13/21 09:39 Dose: 0.4 mg Physical Exam Vital Signs: Vital Signs: Last Vital Signs Temp 97.9 F 09/13/21 08:00 Pulse 100 09/13/21 08:00 Resp 18 09/13/21 08:00 BP 175/85 H 09/13/21 08:00 Pulse Ox 93 09/13/21 08:00 O2 Del Method 09/13/21 08:00 BMI result Body Mass Index 19.7 Const: General: no acute distress and ill appearing Nutritional Appearance: underweight Orientation/consciousness: patient oriented x3 Limitations: language barrier and physical limitations HEENT: Head: Yes normal to inspection Ears: hearing grossly normal bilaterally Eyes: Sclerae: sclerae normal Pupils: Equal, round and reactive pupils present Neck: Neck: Yes normal visual inspection Chest: Chest palpation & inspection: normal inspection of the chest Resp: Effort & Inspection: normal respiratory effort Auscultation: clear to auscultation bilaterally Cardio: Palpation: normal PMI Rate: regular rate Rhythm: regular rhythm Heart sounds: S1 normal heart sound present, S2 normal heart sound present and no murmurs GI: Inspection: Yes distended Palpation (GI): Soft to palpation, nontender and No hepatosplenomegaly present Auscultation: normal bowel sounds Rectal Exam - Male: Yes deferred Skin: General skin exam: no rashes or lesions noted Neuro: General: patient oriented x3, gait normal and moves all extremities Cranial nerves: Yes Equal, round and reactive pupils present Extrem: General: Yes edema (trace pitting edema bilaterally) Psych: Appearance: grossly normal Mental Status: mental status grossly normal Results Labs CBC & Chem 7: 09/13/21 07:07 09/13/21 07:07 Labs: Short CBC 09/12/21 09/13/21 Range/Units 16:28 07:07 WBC 21.0 H 20.2 H (4.8-10.8) X10*3/uL Hgb 11.8 L 12.5 L (14.0-18.0) g/dl Hct 38.1 L 40.3 L (42.0-52.0) % Plt Count 296 D 314 (160-400) X10*3/uL BMP 09/12/21 09/13/21 16:28 07:07 Sodium 141 144 Potassium 5.1 D 4.7 Chloride 105 107 Carbon Dioxide 26 26 BUN 41 H D 37 H Creatinine 1.97 H 1.63 H Calcium 9.3 D 9.1 Liver Function 09/12/21 Range/Units 16:28 Total Bilirubin 0.3 (0.0-1.0) mg/dL Direct Bilirubin 0.2 (0.0-0.5) mg/dL AST 27 (5-37) U/L ALT 40 (0-40) U/L Alkaline Phosphatase 145 H D (39-117) U/L Albumin 3.4 L D (3.5-5.0) g/dL Urine 09/12/21 Range/Units 21:28 Urine Color YELLOW Urine Appearance CLEAR Urine pH 6.0 (5.0-8.0) Ur Specific Normanna 1.010 (1.005-1.025) Urine Protein 1+ H (NEG-TRACE) MG/DL Urine Glucose (UA) NEG (NEG) MG/DL Assessment and Plan (1) Constipation: Status: Acute (2) Acid reflux: Status: Acute Plan 86-year-old Bosnian speaking man with hypertension, GERD, chronic constipation, depression anxiety admitted to [facility] on 09/12/21 with urinary retention associated with severe constipation.? Constipation is likely due to colonic inertia and related to extrinsic compression of the colon due to acute urinary retention RECOMMENDATIONS: 1. Agree with continuing on a regular bowel program 2. Obtain KUB - if it shows excessive stool in the colon, pt can be treated with fleet or 500 ml of tap water enemas. 3. Colonoscopy can be scheduled as an outpatient once evaluation for urinary retention and left sided weakness has been completed. Procedures Date of Service Date of Service: 09/13/21
[2021-09-13 12:00] VITALS: BP 136/66; PULSE 96; RESP 18; TEMP 36.8; O2SAT 95
--- NOTE | 2021-09-13 13:46 | HO.PM.IMPN ---
Subjective Subjective Date of Service: 09/13/21 Interval History: cc: abd distension interval history:resolved distension, no BM, left hemiparesis Cardiovascular Cardiovascular: Reports no additional cardiovascular complaints Respiratory Respiratory: Reports no additional respiratory complaints Physical Exam Vital Signs: Vital Signs: Last Vital Signs Temp 98.3 F 09/13/21 12:00 Pulse 96 09/13/21 12:00 Resp 18 09/13/21 12:00 BP 136/66 09/13/21 12:00 Pulse Ox 95 09/13/21 12:00 O2 Del Method 09/13/21 12:00 BMI result Body Mass Index 19.7 General: AO X 2, no acute distress, frail Resp: rales bilateral, no accessory muscles used CVS: S1,S2,RRR GI: soft, non tender, non distended Neuro: left upper and lower 3/5 strength Psych: appropriate affect, impaired insight Objective Data Active Medications Acetaminophen (Acetaminophen 325 Mg Tablet) 650 mg PO Q6H PRN PRN Reason: Pain, Mild (Pain Scale 1-3) Atorvastatin Calcium (Atorvastatin Calcium 20 Mg Tablet) 20 mg PO DAILY [facility] Last Admin: 09/13/21 09:39 Dose: 20 mg Documented By: LASHA Clonazepam (Clonazepam 0.5 Mg Tablet) 0.25 mg PO BID [facility] Last Admin: 09/13/21 09:38 Dose: 0.25 mg Documented By: LASHA Docusate Sodium (Docusate Sodium 100 Mg Capsule) 100 mg PO BID [facility] Last Admin: 09/13/21 09:39 Dose: 100 mg Documented By: LASHA Ergocalciferol (Ergocalciferol (Vitamin D2) 1,250 Mcg Capsule) 1,250 mcg PO Fr [facility] Ceftriaxone Sodium 1 gm/ (Sodium Chloride) 50 mls @ 100 mls/hr IV Q24H [facility] Last Admin: 09/13/21 06:42 Dose: 100 mls/hr Documented By: KASSIDY Lactulose (Lactulose 20 Gm/30 Ml Solution) 10 gm PO BEDTIME [facility] Magnesium Hydroxide (Milk Of Magnesia 30 Ml Oral.Susp) 30 ml PO DAILY PRN PRN Reason: Constipation Mineral Oil (Mineral Oil Enema 133 Ml Enema) 133 ml [place] DAILY PRN PRN Reason: constipation Mirtazapine (Mirtazapine 7.5 Mg Tablet) 7.5 mg PO BEDTIME [facility] Ondansetron HCl (Ondansetron Hcl 4 Mg/2 Ml Vial) 4 mg IVPUSH Q8H PRN PRN Reason: Nausea and Vomiting Paroxetine HCl (Paroxetine Hcl 20 Mg Tablet) 20 mg PO BEDTIME [facility] Polyethylene Glycol (Polyethylene Glycol 3350 17 Gm Powd.Pack) 17 gm PO DAILY [facility] Last Admin: 09/13/21 09:39 Dose: 17 gm Documented By: LASHA Sodium Chloride (0.9 % Sodium Chloride Flush 3 Ml Syringe) 3 ml IVFLUSH QSHIFT [facility] Last Admin: 09/13/21 09:40 Dose: 3 ml Documented By: LASHA Tamsulosin HCl (Tamsulosin Hcl 0.4 Mg Capsule) 0.4 mg PO DAILY [facility] Last Admin: 09/13/21 09:39 Dose: 0.4 mg Documented By: LASHA Labs CBC & Chem 7: 09/13/21 07:07 09/13/21 07:07 Labs: Laboratory Results - last 24 hr 09/12/21 09/12/21 09/12/21 16:28 16:28 16:28 MCV 92.0 MCH 28.5 MCHC 31.0 RDW 12.3 Plt Count 296 D MPV 9.9 Immature Gran % (Auto) 1.6 H Neut % (Auto) 81.7 H Lymph % (Auto) 10.1 L [place] % (Auto) 5.8 Eos % (Auto) 0.6 Baso % (Auto) 0.2 Lymph # (Auto) 2.1 [place] # (Auto) 1.2 Eos # (Auto) 0.1 Baso # (Auto) 0.0 Abs Immat Gran (auto) 0.34 H Absolute Neuts (auto) 17.2 H Absolute Nucleated RBC 0.000 Nucleated RBC % (auto) 0.0 Anion Gap 15 Estim Creat Clear Calc 22.4 Estimated GFR 32 Random Glucose 90 Lactic Acid Calcium 9.3 D Magnesium 1.9 Total Bilirubin 0.3 Direct Bilirubin 0.2 AST 27 ALT 40 Alkaline Phosphatase 145 H D Troponin I High Sens 9.9 Total Protein 6.7 Albumin 3.4 L D TSH Urine Color Urine Appearance Urine pH Ur Specific [place] Urine Protein Urine Glucose (UA) Urine Ketones Urine Blood Urine Nitrite Ur Leukocyte Esterase Urine RBC Urine WBC Ur Squamous Epith Cells Urine Bacteria COVID-19 ([facility]) COVID-19 Clin Com 06/25/22 06/25/22 06/25/22 19:09 21:28 22:09 MCV MCH MCHC RDW Plt Count MPV Immature Gran % (Auto) Neut % (Auto) Lymph % (Auto) [place] % (Auto) Eos % (Auto) Baso % (Auto) Lymph # (Auto) [place] # (Auto) Eos # (Auto) Baso # (Auto) Abs Immat Gran (auto) Absolute Neuts (auto) Absolute Nucleated RBC Nucleated RBC % (auto) Anion Gap Estim Creat Clear Calc Estimated GFR Random Glucose Lactic Acid 0.9 Calcium Magnesium Total Bilirubin Direct Bilirubin AST ALT Alkaline Phosphatase Troponin I High Sens Total Protein Albumin TSH Urine Color YELLOW Urine Appearance CLEAR Urine pH 6.0 Ur Specific [place] 1.010 Urine Protein 1+ H Urine Glucose (UA) NEG Urine Ketones NEG Urine Blood 2+ H Urine Nitrite NEG Ur Leukocyte Esterase 3+ H Urine RBC 5-9 H Urine WBC 15-29 H Ur Squamous Epith Cells TRACE Urine Bacteria 3+ COVID-19 ([facility]) Negative COVID-19 Clin Com See Note 09/13/21 09/13/21 07:07 07:07 MCV 90.6 MCH 28.1 MCHC 31.0 RDW 12.3 Plt Count 314 MPV 9.9 Immature Gran % (Auto) 1.6 H Neut % (Auto) 84.1 H Lymph % (Auto) 8.9 L [place] % (Auto) 4.9 Eos % (Auto) 0.4 Baso % (Auto) 0.1 Lymph # (Auto) 1.8 [place] # (Auto) 1.0 Eos # (Auto) 0.1 Baso # (Auto) 0.0 Abs Immat Gran (auto) 0.32 H Absolute Neuts (auto) 17.0 H Absolute Nucleated RBC 0.000 Nucleated RBC % (auto) 0.0 Anion Gap 16 Estim Creat Clear Calc 27.1 Estimated GFR 40 Random Glucose 70 Lactic Acid Calcium 9.1 Magnesium Total Bilirubin Direct Bilirubin AST ALT Alkaline Phosphatase Troponin I High Sens Total Protein Albumin TSH 1.11 Urine Color Urine Appearance Urine pH Ur Specific [place] Urine Protein Urine Glucose (UA) Urine Ketones Urine Blood Urine Nitrite Ur Leukocyte Esterase Urine RBC Urine WBC Ur Squamous Epith Cells Urine Bacteria COVID-19 ([facility]) COVID-19 Clin Com Microbiology Microbiology Results: Microbiology 06/25/22 Unknown Urine Culture - Preliminary Urine clean catch - Urine caputo top Culture too young to evaluate. Assessment and Plan (1) TYRESE (acute kidney injury): Status: Acute Plan 86M presented with abdominal distension abdominal distention likely more related to urinary obstruction complicated by bilateral hydronephrosis and TYRESE s/p granado, (2.3L residual) continue granado, added flomax, outpatient chronic constipation conitnue lactulose, miralax, enema prn, gi following follow up KUB uti due to obstruction rocephin, follow up cultures left hemiparesis about 1 month of symptoms, suspect had CVA at that time check CT head continue statin start aspirin if cva confirmed will do carotids, echo APPLICATION DEVELOPMENT DIRECTOR eval dvt prophyalxis - mechanical due to hematuria full code reason for continued hospitalization: abimael deshpande up for left hemiparesis, awaiting bowel function Quality Stroke Does the patient have a stroke diagnosis?: No VTE Prior VTE?: No VTE Risk Level:: Medical - low VTE Device Contraindication: Treatment Not Indicated VTE Drug Contraindication: Treatment Not Indicated
[2021-09-13 15:18] VITALS: BP 107/56; PULSE 96; RESP 17; TEMP 36.2; O2SAT 93
--- NOTE | 2021-09-13 16:37 | MHC.CM.PN ---
CM MET WITH PTS DAUGHTER AND SON AT BEDSIDE THEY REPORT THE PT WAS AT [facility] LAST MONTH AND WAS SET UP WITH [facility] WITH [facility]. THEY EXPRESSED MANY CONCERNS WITH THE SERVICES AND ASKED THAT THEY BE CANCELED THEY ARE ALSO REQUESTING ASSISTANCE WITH OBTAINING [facility] CM EXPLAINED THE PROCESS BUT ENCOURAGED THEM TO CONTACT THE AGENCY DIRECTLY TOMORROW PT LIVES WITH HIS BUT FAMILY HAS BEEN ASSISTING WITH HIS CARE OVER THE LAST MONTH+ PT USES [facility] FAMILY REPORTS PT HAS A HCP AND THEY WILL BRING A COPY TOMORROW PCP: DANIELLE PISANO DELIVERED CURRENT DC PLAN IS HOME WITH FAMILY SUPPORT PT IS [place] SPEAKING ONLY HOWEVER SON AND DAUGHTER SPEAK [place] AND ARE REPORTEDLY BOTH ON THE HCP
[2021-09-13 20:00] VITALS: BP 98/60; PULSE 97; RESP 18; TEMP 37.1; O2SAT 91
[2021-09-13] MEDS: Lactulose 20 GM/30 ML SOLUTION 10 GM PO (20:46)
[2021-09-13] MEDS: PARoxetine HCL 20 MG TABLET PO (20:46)
[2021-09-13] MEDS: Mirtazapine 7.5 MG TABLET PO (20:46)
[2021-09-13] MEDS: Acetaminophen 325 MG TABLET 650 MG PO (20:53)
[2021-09-14] VITALS (7 sets, daily range): BP systolic 80–120; BP diastolic 56–70; PULSE 92–108; RESP 16–30; TEMP 36.1–37; O2SAT 87–98
--- NOTE | 2021-09-14 05:05 | P.EN_ITS ---
Event Note Date of Service: 09/14/21 Event Note: hypoxia: Patient became hypoxic to mid 80s, requiring supplemental oxygen at 5 L- saturating 90%; coarse breath sounds Will obtain stat chest x-ray and D-dimer.
[2021-09-14] MEDS: cefTRIAXone sodium 1 GM in 0.9 % Sodium Chloride 50 ML IV (05:48)
[2021-09-14 06:07] LABS: Hematocrit 40.5 % (42.0-52.0); Hemoglobin 12.8 g/dl (14.0-18.0); Mean Corpuscular HGB Conc 31.6 g/dl (31.0-36.0); Mean Corpuscular Hemoglobin 28.6 pg (27.0-33.0); Mean Corpuscular Volume 90.6 fL (80.0-98.0); Mean Platelet Volume 9.8 fL (9.4-12.4); Platelet Count 309 X10*3/uL (160-400); Red Blood Count 4.47 X10*6/uL (4.60-5.80); Red Cell Distribution Width 12.3 % (11.0-16.0); White Blood Count 25.9 X10*3/uL (4.8-10.8)
[2021-09-14 06:25] LABS: Anion Gap 11 (12-20); Blood Urea Nitrogen 36 mg/dL (9-16); Calcium 8.6 mg/dL (8.4-10.2); Carbon Dioxide 31 mmol/L (22-29); Chloride 103 mmol/L (96-108); Creatinine Clr Calc Pharmacy 31.8; Estimated Glomerular Filt Rate 48; Glucose Fasting 134 mg/dL (60-99); Potassium 4.2 mmol/L (3.3-5.1); Sodium 141 mmol/L (135-145)
[2021-09-14 06:31] LABS: B Type Natriuretic Peptide 72 pg/mL (<100)
[2021-09-14 06:54] LABS: D Dimer High Sensitivity 346 NG/ML
--- NOTE | 2021-09-14 07:00 | CA_ITS ---
Transthoracic Echocardiogram Patient (Last, First, Middle): Aleta Trent, Gender: Male Date of : 1935 Age: 86 Procedure Date: 09/14/2021 Procedure Type: Transthoracic Echocardiogram [place] [facility] [place]: 172.72 cm Weight: 58.97 kg BSA: 1.70 m2 Heart Rate: bpm BP: 110 / 56 mmHg Laborer Tree Tapping: HEIDI Referring MD: Behzad Fraser MD Symptoms: ? cva Study Quality: Technically Difficult ECG Rhythm: Sinus Conclusions: - Several views are off axis but suspect grossly normal LVEF. - There is moderate calcification of the aortic valve. Possible mild aortic stenosis. Findings Left Ventricle Normal left ventricular cavity size. There is normal left ventricular wall thickness. Regional wall motion abnormalities can not be excluded due to suboptimal endocardial definition. Diastolic function is normal for age. Several views are off axis but suspect grossly normal LVEF. Right Ventricle Normal right ventricular cavity size and systolic function. Atria The left atrium was not well visualized. The right atrium is normal in size. Aortic Valve There is moderate calcification of the aortic valve. The mean gradient is 5 mmHg. Possible mild aortic stenosis. No significant regurgitation. Mitral Valve The mitral valve appears normal. There is trace mitral valve regurgitation. There is no mitral valve stenosis. Pulmonic Valve The pulmonic valve is likely normal. Tricuspid Valve Normal tricuspid valve structure. There is trace tricuspid valve regurgitation. There is no evidence of pulmonary hypertension. Great Vessels The aorta was not well visualized. There is mild dilatation of the sinuses of Valsalva measuring 4.13 cm. Venous The inferior vena cava is mildly dilated and collapses greater than 50% with inspiration. Pericardium/Pleural There is no evidence of pericardial effusion. Prior Study Comparison No prior study available for comparison. Measurements 2D Linear Measurements IVSd: 0.97 0.6-0.9/0.6-1.0 cm LVIDd: 3.82 3.9-5.3/4.2-5.9 cm LVIDd Index: 2.25 2.4-3.2/2.2-3.1 cm/m2 LVIDs: 2.17 2.0-3.6 cm LVPWd: 0.97 0.7-1.1 cm LA Diam: 2.80 2.7-3.8/3.0-4.0 cm LAIDs Index: 1.65 1.5-2.3 cm/m2 LV Mass: 141.09 67-162/88-224 g LV Mass Index: 82.99 43-95/49-115 g/m2 LVOT Diam: 2.00 3.0+(-)1.3 cm Mitral Valve MV Pk E: 0.49 MV PK A: 0.69 MV Decel Time: 112.00 E/A: 0.70 E'Lateral: 10.70 E'Medial: 6.74 E/E' Med: 7.30 E/E' Lat: 4.60 PHT: 33.00 MVA PHT: 6.67 Decel Jay: 4.40 Aortic Valve AoV Pk Kalpesh: 1.59 AoV Mn Kalpesh: 1.09 AoV VTI: 0.27 AoV Pk Grad: 10.00 Aov Mn Grad: 5.00 ZOË Cont.VTI: 1.62 LVOT LVOT Pk Kalpesh: 0.62 LVOT Mn Kalpesh: 0.39 LVOT VTI: 0.14 LVOT Pk Grad: 2.00 LVOT Mn Grad: 1.00 LVOT Diam: 2.00 LVOT Area: 3.14 Diastolic Function MV Pk E: 0.49 MV Pk A: 0.69 E/A: 0.70 E'Medial: 6.74 E/E' Med: 7.30 E' Laterial: 10.70 E/E' Lat: 4.60 Right Ventricle TAPSE (mm): 18.80 Tricuspid Valve TR Pk Kalpesh: 2.66 TR Pk Grad: 28.00 RA Press: 3.00 RVSP: 31.00 Great Vessels Aorta Sinus of Valsalva: 4.13 2.0-3.5 cm Updated in Other Vendor System with Status of Final Fito Redman MD electronically signed on 09/14/2021 11:15:00 AM with status of Final
[2021-09-14] MEDS: clonazePAM 0.5 MG TABLET 0.25 MG PO (08:41)
[2021-09-14] MEDS: polyethylene glycoL 3350 17 GM POWD.PACK PO (08:42)
[2021-09-14] MEDS: 0.9 % Sodium Chloride Flush 3 ML SYRINGE IVFLUSH ×3 (08:42→20:46)
[2021-09-14] MEDS: Atorvastatin Calcium 20 MG TABLET PO (08:42)
[2021-09-14] MEDS: Aspirin Enteric Coated 81 MG TABLET.DR PO (08:42)
[2021-09-14] MEDS: Tamsulosin HCL 0.4 MG CAPSULE PO (08:42)
[2021-09-14] MEDS: Docusate Sodium 100 MG CAPSULE PO (08:42)
--- NOTE | 2021-09-14 13:20 | HO.PM.IMPN ---
Subjective Subjective Date of Service: 09/14/21 Interval History: cc: abd distension interval history: obtunded Review of Systems Review of Systems: Yes Unobtainable due to mental condition Physical Exam Vital Signs: Vital Signs: Last Vital Signs Temp 97.6 F 09/14/21 12:00 Pulse 99 09/14/21 12:00 Resp 20 09/14/21 12:00 BP 115/63 09/14/21 12:00 Pulse Ox 92 09/14/21 12:00 O2 Del Method 09/14/21 12:00 O2 Flow Rate 4 09/14/21 12:00 BMI result Body Mass Index 19.7 General: obtunded but arouses to minimal tactile stimulus Resp: diminished, rhonchi bilateral, no accessory muscles used CVS: S1,S2,RRR GI: soft, non tender, non distended Neuro: left hemiparesis, obtunded Psych: impaired insight Objective Data Active Medications Acetaminophen (Acetaminophen 325 Mg Tablet) 650 mg PO Q6H PRN PRN Reason: Pain, Mild (Pain Scale 1-3) Last Admin: 09/13/21 20:53 Dose: 650 mg Documented By: AURELIO Aspirin (Aspirin Enteric Coated 81 Mg Tablet.) 81 mg PO DAILY [facility] Last Admin: 09/14/21 08:42 Dose: 81 mg Documented By: LASHA Atorvastatin Calcium (Atorvastatin Calcium 20 Mg Tablet) 20 mg PO DAILY [facility] Last Admin: 09/14/21 08:42 Dose: 20 mg Documented By: LASHA Clonazepam (Clonazepam 0.5 Mg Tablet) 0.25 mg PO BID [facility] Last Admin: 09/14/21 08:41 Dose: 0.25 mg Documented By: LASHA Docusate Sodium (Docusate Sodium 100 Mg Capsule) 100 mg PO BID [facility] Last Admin: 09/14/21 08:42 Dose: 100 mg Documented By: LASHA Ergocalciferol (Ergocalciferol (Vitamin D2) 1,250 Mcg Capsule) 1,250 mcg PO [facility] Ceftriaxone Sodium 1 gm/ (Sodium Chloride) 50 mls @ 100 mls/hr IV Q24H [facility] Last Infusion: 09/14/21 06:23 Dose: 0 mls/hr Documented By: AURELIO Lactulose (Lactulose 20 Gm/30 Ml Solution) 10 gm PO BEDTIME [facility] Last Admin: 09/13/21 20:46 Dose: 10 gm Documented By: AURELIO Magnesium Hydroxide (Milk Of Magnesia 30 Ml Oral.Susp) 30 ml PO DAILY PRN PRN Reason: Constipation Mineral Oil (Mineral Oil Enema 133 Ml Enema) 133 ml [place] DAILY PRN PRN Reason: constipation Mirtazapine (Mirtazapine 7.5 Mg Tablet) 7.5 mg PO BEDTIME [facility] Last Admin: 09/13/21 20:46 Dose: 7.5 mg Documented By: AURELIO Ondansetron HCl (Ondansetron Hcl 4 Mg/2 Ml Vial) 4 mg IVPUSH Q8H PRN PRN Reason: Nausea and Vomiting Paroxetine HCl (Paroxetine Hcl 20 Mg Tablet) 20 mg PO BEDTIME [facility] Last Admin: 09/13/21 20:46 Dose: 20 mg Documented By: AURELIO Polyethylene Glycol (Polyethylene Glycol 3350 17 Gm Powd.Pack) 17 gm PO DAILY [facility] Last Admin: 09/14/21 08:42 Dose: 17 gm Documented By: LASHA Sodium Chloride (0.9 % Sodium Chloride Flush 3 Ml Syringe) 3 ml IVFLUSH QSHIFT [facility] Last Admin: 09/14/21 08:42 Dose: 3 ml Documented By: LASHA Tamsulosin HCl (Tamsulosin Hcl 0.4 Mg Capsule) 0.4 mg PO DAILY [facility] Last Admin: 09/14/21 08:42 Dose: 0.4 mg Documented By: LASHA Labs CBC & Chem 7: 09/14/21 05:58 09/14/21 05:58 Labs: Laboratory Results - last 24 hr 09/14/21 09/14/21 09/14/21 05:58 05:58 05:58 MCV 90.6 MCH 28.6 MCHC 31.6 RDW 12.3 Plt Count 309 MPV 9.8 Absolute Nucleated RBC 0.000 Nucleated RBC % (auto) 0.0 D-Dimer High Sensitivty 346 Anion Gap 11 L Estim Creat Clear Calc 31.8 Estimated GFR 48 Fasting Glucose 134 H Calcium 8.6 B-Natriuretic Peptide 09/14/21 05:58 MCV MCH MCHC RDW Plt Count MPV Absolute Nucleated RBC Nucleated RBC % (auto) D-Dimer High Sensitivty Anion Gap Estim Creat Clear Calc Estimated GFR Fasting Glucose Calcium B-Natriuretic Peptide 72 Microbiology Microbiology Results: Microbiology 09/12/21 Unknown Urine Culture - Preliminary Urine clean catch - Urine caputo top Enterococcus/Streptococcus sp 09/12/21 19:09 Blood Culture - Preliminary Blood - Venous No growth after 24 hours. 09/12/21 18:52 Blood Culture - Preliminary Blood - Venous No growth after 24 hours. Assessment and Plan (1) TYRESE (acute kidney injury): Status: Acute Plan 86M presented with abdominal distension abdominal distention due to urinary obstruction complicated by bilateral hydronephrosis and TYRESE s/p granado, (2.3L residual) continue granado, added flomax, outpatient tyrese improved chronic constipation conitnue lactulose, miralax, enema prn, gi following follow up KUB metabolic encephalopathy, left hemiparesis MRI with multiple cvas of varying acuity continue asa, statin, neuro eval, [facility]IL[facility] BURNER, will get pt when more appriopriate likely component of hospital delerium uti due to obstruction urine culture strep/enterococcus rocephin, follow up cultures dvt prophyalxis - mechanical due to hematuria prognosis guarded - full code - discussed and confirmed with patient daughter reason for continued hospitalization: obtunded Quality Stroke Does the patient have a stroke diagnosis?: No VTE Prior VTE?: No VTE Risk Level:: Medical - low VTE Device Contraindication: Treatment Not Indicated VTE Drug Contraindication: Treatment Not Indicated
--- NOTE | 2021-09-14 14:05 | P.CNNE_ITS ---
History of Present Illness Data of Consult Service Date: 09/14/21 Primary Care Provider: Joel Christianson MD HPI Reason for consult: stroke 86 years old man with underlying diagnosis of dementia was brought to hospital for severe constipation. His belly imaging revealed large amount of stool and possibility of intestinal obstruction and also hydronephrosis. His chest x-ray reveals some pleural effusion. For change in mental status a CT scan of brain was done that did not reveal any acute abnormality. With left-sided weakness, an MRI of brain was performed that revealed bilateral ischemic infarctions and this consultation was requested. He was unable to provide any meaningful history. Review of Systems Review of Systems: Could not be done with [facility] Past Medical History Medical History (Updated 09/14/21 @ 14:08 by Naty Degroot MD) Chronic constipation Dementia Depression GERD (gastroesophageal reflux disease) H/O urinary retention HTN (hypertension) IBS (irritable bowel syndrome) Urethral stricture Family History Family History Father No problems noted. Mother No problems noted. Son No problems noted. Surgical History Surgical History History of prostate surgery Social History Social History Household Members Other:: lives with - adult children involved Housing: Apartment Alcohol intake: never Patient Tobacco Use Status: Former Tobacco user Smoked in Last 30 Days: No e-Cigarette/Vaping Use: Never Used Patient Interested in Nicotine Replacement: No Patient Given Instructions on How to Stop Smoking: No Second Hand Smoke Exposure: No Advance Directives: No Advance Directives Information Provided: No service: No Current occupational status: retired Cognitive needs: No Hearing needs: No Vision needs: No Meds Allergies Allergy/AdvReac Type Severity Reaction Status Date / Time No Known Allergies Allergy Verified 09/10/21 13:35 Active Medications: Current Medications Acetaminophen (Acetaminophen 325 Mg Tablet) 650 mg PO Q6H PRN PRN Reason: Pain, Mild (Pain Scale 1-3) Last Admin: 09/13/21 20:53 Dose: 650 mg Aspirin (Aspirin Enteric Coated 81 Mg Tablet.) 81 mg PO DAILY [facility] Last Admin: 09/14/21 08:42 Dose: 81 mg Atorvastatin Calcium (Atorvastatin Calcium 80 Mg Tablet) 80 mg PO DAILY [facility] Clonazepam (Clonazepam 0.5 Mg Tablet) 0.25 mg PO BID [facility] Last Admin: 09/14/21 08:41 Dose: 0.25 mg Clopidogrel Bisulfate (Clopidogrel Bisulfate 75 Mg Tablet) 75 mg PO DAILY [facility] Docusate Sodium (Docusate Sodium 100 Mg Capsule) 100 mg PO BID [facility] Last Admin: 09/14/21 08:42 Dose: 100 mg Ergocalciferol (Ergocalciferol (Vitamin D2) 1,250 Mcg Capsule) 1,250 mcg PO Fr [facility] Ceftriaxone Sodium 1 gm/ (Sodium Chloride) 50 mls @ 100 mls/hr IV Q24H [facility] Last Infusion: 09/14/21 06:23 Dose: Infused Lactulose (Lactulose 20 Gm/30 Ml Solution) 10 gm PO BEDTIME [facility] Last Admin: 09/13/21 20:46 Dose: 10 gm Magnesium Hydroxide (Milk Of Magnesia 30 Ml Oral.Susp) 30 ml PO DAILY PRN PRN Reason: Constipation Mineral Oil (Mineral Oil Enema 133 Ml Enema) 133 ml [place] DAILY PRN PRN Reason: constipation Mirtazapine (Mirtazapine 7.5 Mg Tablet) 7.5 mg PO BEDTIME [facility] Last Admin: 09/13/21 20:46 Dose: 7.5 mg Ondansetron HCl (Ondansetron Hcl 4 Mg/2 Ml Vial) 4 mg IVPUSH Q8H PRN PRN Reason: Nausea and Vomiting Paroxetine HCl (Paroxetine Hcl 20 Mg Tablet) 20 mg PO BEDTIME [facility] Last Admin: 09/13/21 20:46 Dose: 20 mg Polyethylene Glycol (Polyethylene Glycol 3350 17 Gm Powd.Pack) 17 gm PO DAILY [facility] Last Admin: 09/14/21 08:42 Dose: 17 gm Sodium Chloride (0.9 % Sodium Chloride Flush 3 Ml Syringe) 3 ml IVFLUSH QSHIFT [facility] Last Admin: 09/14/21 08:42 Dose: 3 ml Tamsulosin HCl (Tamsulosin Hcl 0.4 Mg Capsule) 0.4 mg PO DAILY [facility] Last Admin: 09/14/21 08:42 Dose: 0.4 mg Physical Exam Vital Signs: Vital Signs: Last Vital Signs Temp 97.6 F 09/14/21 12:00 Pulse 99 09/14/21 12:00 Resp 20 09/14/21 12:00 BP 115/63 09/14/21 12:00 Pulse Ox 92 09/14/21 12:00 O2 Del Method 09/14/21 12:00 O2 Flow Rate 4 09/14/21 12:00 BMI result Body Mass Index 19.7 Neuro: Other: very drowsy. With pain he open his eyes but did not make a conversation. There was no gaze deviation. Visual siegel were difficult to determine. Face seems symmetrical. There was no obvious abnormal posturing. Plantars were withdrawing. Exam was limited Results Labs CBC & Chem 7: 09/14/21 05:58 09/14/21 05:58 Labs: Short CBC 09/14/21 Range/Units 05:58 WBC 25.9 H (4.8-10.8) X10*3/uL Hgb 12.8 L (14.0-18.0) g/dl Hct 40.5 L (42.0-52.0) % Plt Count 309 (160-400) X10*3/uL BMP 09/14/21 05:58 Sodium 141 Potassium 4.2 Chloride 103 Carbon Dioxide 31 H BUN 36 H Creatinine 1.39 Calcium 8.6 MRI of brain revealed bilateral frontal lobe area somewhat border zone restricted area of diffusion that was larger on right side than left. [id number] diffuse atrophy was noted. 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 Microbiology Microbiology Results: Microbiology 09/12/21 Unknown Urine clean catch - Urine caputo top Urine Culture - Preliminary Enterococcus/Streptococcus sp 09/12/21 19:09 Blood - Venous Blood Culture - Preliminary No growth after 24 hours. 09/12/21 18:52 Blood - Venous Blood Culture - Preliminary No growth after 24 hours. Assessment and Plan (1) Cerebral infarction: Status: Acute 86 years old man who came to hospital for severe constipation. for change in mental status and left-sided weakness he had brain imaging that revealed bilateral ischemic infarctions, which were somewhat in border zone areas. carotid ultrasound revealed that his right carotid was occluded and left was significantly stenosed. His blood pressure has significantly dropped yesterday, which might have resulted in border zone areas of infarction with underlying severe carotid disease. Because of multiple associated medical issues, he was not a candidate for surgery at this time. For carotid disease and strokes, mainstay of management is a baby aspirin daily if possible, blood pressure management but avoiding hypotension and keeping blood pressure and high normal range and avoiding dehydration. This type of infarcts can result in weakness, which would be more so on the left side and also change in personality and cognition. Procedures Date of Service Date of Service: 09/14/21
--- NOTE | 2021-09-14 15:14 | MHC.SL.SWA ---
Speech Pathologist Impression: Oropharyngeal dysphagia Risk of Aspiration Due to: Neurological Condition Reduced Cognition Dysphasia Diet Status: Downgrade Liquid Consistency and Strategies for Safe Swallow: Liquid Intake Recommendation: NPO Solid Food Consistency: Dietary Recommendations: NPO Additional Modifications to Solid Foods: Overt s/s of aspiration w/ PO trials at bedside. Recommend NPO at this time. Notified , RN, RD. SAFE DEPOSIT ATTENDANT will continue to follow to re-assess. Oral Medication Intake: NPO Please contact the pharmacy regarding appropriate crushable or liquid drug formulations that are available whenever modified delivery is recommended. Supervision While Eating and Drinking for Safe Swallow: PO with SAFE DEPOSIT ATTENDANT Swallowing Recommended Treatments: Recommendation for Speech: Inpatient Speech Therapy Comment: SAFE DEPOSIT ATTENDANT will continue to follow. Frequency/Duration: Date Range for Service Req: Timeline to reassess: Container Repairer Clinican/Clinical Fellow: No Supervisory Statement: I have reviewed and agree with the student/clinical fellow's documentation: N/A Speech Language Pathologist: Marion Monsivais M.A., CCC-SAFE DEPOSIT ATTENDANT
[2021-09-14] MEDS: 0.9 % Sodium Chloride 1,000 ML 999 ML IV (16:04)
[2021-09-14] MEDS: Acetaminophen Supp 325 MG SUPP.RECT PR (23:05)
[2021-09-15] VITALS (7 sets, daily range): BP systolic 97–132; BP diastolic 45–85; PULSE 81–103; RESP 16–18; TEMP 36.4–37.2; O2SAT 95–100
[2021-09-15] MEDS: Lactated Ringers 1,000 ML 999 ML IV (00:30)
[2021-09-15] MEDS: cefTRIAXone sodium 1 GM in 0.9 % Sodium Chloride 50 ML IV (05:25)
[2021-09-15 06:47] LABS: Hematocrit 34.7 % (42.0-52.0); Hemoglobin 10.9 g/dl (14.0-18.0); Mean Corpuscular HGB Conc 31.4 g/dl (31.0-36.0); Mean Corpuscular Hemoglobin 28.8 pg (27.0-33.0); Mean Corpuscular Volume 91.8 fL (80.0-98.0); Mean Platelet Volume 10.4 fL (9.4-12.4); Platelet Count 260 X10*3/uL (160-400); Red Blood Count 3.78 X10*6/uL (4.60-5.80); Red Cell Distribution Width 12.3 % (11.0-16.0); White Blood Count 19.8 X10*3/uL (4.8-10.8)
[2021-09-15 07:08] LABS: Anion Gap 12 (12-20); Blood Urea Nitrogen 26 mg/dL (9-16); Calcium 8.2 mg/dL (8.4-10.2); Carbon Dioxide 29 mmol/L (22-29); Chloride 106 mmol/L (96-108); Estimated Glomerular Filt Rate > 60; Glucose Fasting 86 mg/dL (60-99); Potassium 4.4 mmol/L (3.3-5.1); Sodium 143 mmol/L (135-145)
--- NOTE | 2021-09-15 09:07 | P.CDIC_ITS ---
CDI Concurrent Query Documentation Clarification: PHYSICIAN'S DOCUMENTATION REQUEST Date of Query: 09/15/21907 Patient Name: Aleta Trent Admit Date: 09/13/21 Dear Doctor, A review of the medical record indicates additional documentation may be needed. Please review below and update the documentation accordingly. Clinical Indicators: Risk Factors/Clinical Indicators/Treatments Per Event note 09/14/21: hypoxia: ?Patient became hypoxic to mid 80s, requiring supplemental oxygen at 5 L-saturating 90%; coarse breath sounds Respiratory rate 28-30 Recognized standard criteria for respiratory failure includes: (Source: [facility] Hospitalist Jan 2013) ABGs (1 or more) Symptoms: ? PO2 <60 or RA SpO2 <91% ? Tachypnea, SOB, dyspnea ? PcO2 >50 and pH <7.35 ? Pallor or cyanosis ? pO2 decrease or pcO2 increase ? Anxiety or restlessness by 10 mm/Hg from baseline if known ? Use of accessory muscles ? Retractions (grunting in newborns) ? Unable to speak in complete sentences P/F ratio < 300 Supplemental O2 requirement of 40% or more Intubation is not required Clarify which of the following accurately represents the patient's respiratory status: * Acute respiratory failure * Acute respiratory distress * Hypoxia * Other (please specify) * Unable to determine Please include type if known: * Hypoxic * Hypercapnic * Hypoxic and hypercapnic * Unable to determine Use of terms such as suspected, likely, concern for, or probable (associated with a specific diagnosis that is being evaluated, monitored, or treated as if it exists) are acceptable and can be coded in the inpatient setting, when documented at the time of discharge. Thank you, Kina Nicholas RN Extension: [phone] Please use your independent medical judgment in providing your response. THIS QUERY IS PART OF THE PERMANENT MEDICAL RECORD Provider Response: Acute Respiratory Failure
--- NOTE | 2021-09-15 10:41 | P.PNIM_ITS ---
Subjective Subjective Date of Service: 09/15/21 Interval History: cc: abd distension interval history:abd distension resolved, weakness, thirsty Cardiovascular Cardiovascular: Reports no additional cardiovascular complaints Respiratory Respiratory: Reports no additional respiratory complaints Physical Exam Vital Signs: Vital Signs: Last Vital Signs Temp 98.4 F 09/15/21 08:00 Pulse 81 09/15/21 08:00 Resp 16 09/15/21 08:00 BP 130/66 09/15/21 08:00 Pulse Ox 99 09/15/21 08:00 O2 Del Method 09/15/21 08:00 O2 Flow Rate 4 09/15/21 08:00 BMI result Body Mass Index 19.7 General: much more alert today, still frail, ill appearing, lethargic Resp: diminished bilateral, no accessory muscles used CVS: S1,S2,RRR GI: soft, non tender, non distended Neuro: left hemiparesis, alert Psych: appropriate affect, impaired insight Objective Data Active Medications Acetaminophen (Acetaminophen 325 Mg Tablet) 650 mg PO Q6H PRN PRN Reason: Pain, Mild (Pain Scale 1-3) Last Admin: 09/13/21 20:53 Dose: 650 mg Documented By: AURELIO Aspirin (Aspirin Enteric Coated 81 Mg Tablet.Dr) 81 mg PO DAILY [facility] Last Admin: 09/14/21 08:42 Dose: 81 mg Documented By: LASHA Atorvastatin Calcium (Atorvastatin Calcium 80 Mg Tablet) 80 mg PO DAILY [facility] Clonazepam (Clonazepam 0.5 Mg Tablet) 0.25 mg PO BID [facility] Last Admin: 09/14/21 20:53 Dose: Not Given Documented By: ADITHYA Non-Admin Reason: NPO Clopidogrel Bisulfate (Clopidogrel Bisulfate 75 Mg Tablet) 75 mg PO DAILY [facility] Docusate Sodium (Docusate Sodium 100 Mg Capsule) 100 mg PO BID [facility] Last Admin: 09/14/21 20:54 Dose: Not Given Documented By: ADITHYA Non-Admin Reason: NPO Ergocalciferol (Ergocalciferol (Vitamin D2) 1,250 Mcg Capsule) 1,250 mcg PO Fr [facility] Ceftriaxone Sodium 1 gm/ (Sodium Chloride) 50 mls @ 100 mls/hr IV Q24H [facility] Last Infusion: 09/15/21 06:10 Dose: 0 mls/hr Documented By: ADITHYA Lactulose (Lactulose 20 Gm/30 Ml Solution) 10 gm PO BEDTIME [facility] Last Admin: 09/14/21 20:54 Dose: Not Given Documented By: ADITHYA Non-Admin Reason: NPO Magnesium Hydroxide (Milk Of Magnesia 30 Ml Oral.Susp) 30 ml PO DAILY PRN PRN Reason: Constipation Midodrine (Midodrine Hcl 5 Mg Tablet) 5 mg PO TID [facility] Mineral Oil (Mineral Oil Enema 133 Ml Enema) 133 ml [place] DAILY PRN PRN Reason: constipation Mirtazapine (Mirtazapine 7.5 Mg Tablet) 7.5 mg PO BEDTIME [facility] Last Admin: 09/14/21 20:54 Dose: Not Given Documented By: ADITHYA Non-Admin Reason: NPO Ondansetron HCl (Ondansetron Hcl 4 Mg/2 Ml Vial) 4 mg IVPUSH Q8H PRN PRN Reason: Nausea and Vomiting Paroxetine HCl (Paroxetine Hcl 20 Mg Tablet) 20 mg PO BEDTIME [facility] Last Admin: 09/14/21 20:54 Dose: Not Given Documented By: ADITHYA Non-Admin Reason: NPO Polyethylene Glycol (Polyethylene Glycol 3350 17 Gm Powd.Pack) 17 gm PO DAILY [facility] Last Admin: 09/14/21 08:42 Dose: 17 gm Documented By: LASHA Sodium Chloride (0.9 % Sodium Chloride Flush 3 Ml Syringe) 3 ml IVFLUSH QSHIFT [facility] Last Admin: 09/15/21 08:43 Dose: Not Given Documented By: TARIK Non-Admin Reason: assessed Tamsulosin HCl (Tamsulosin Hcl 0.4 Mg Capsule) 0.4 mg PO DAILY [facility] Last Admin: 09/14/21 08:42 Dose: 0.4 mg Documented By: LASHA Labs CBC & Chem 7: 09/15/21 06:22 09/15/21 06:22 Labs: Laboratory Results - last 24 hr 09/15/21 09/15/21 06:22 06:22 MCV 91.8 MCH 28.8 MCHC 31.4 RDW 12.3 Plt Count 260 MPV 10.4 Absolute Nucleated RBC 0.000 Nucleated RBC % (auto) 0.0 Anion Gap 12 Estim Creat Clear Calc 46.0 Estimated GFR > 60 Fasting Glucose 86 D Calcium 8.2 L Microbiology Microbiology Results: Microbiology 09/12/21 Unknown Urine Culture - Final Urine clean catch - Urine caputo top Aerococcus urinae 09/12/21 19:09 Blood Culture - Preliminary Blood - Venous No growth after 48 hours. 09/12/21 18:52 Blood Culture - Preliminary Blood - Venous No growth after 48 hours. Assessment and Plan (1) TYRESE (acute kidney injury): Status: Acute Plan 86M presented with abdominal distension abdominal distention due to recurrent urinary obstruction complicated by bilateral hydronephrosis and TYRESE s/p granado, (2.3L residual) continue granado, added flomax, outpatient tyrese resolved chronic constipation continue lactulose, miralax, enema prn, gi following was likely due to bladder distension acute hypoxic respiratory failure due to aspiration pneumonitis vs aspiration pneumonia not spesis, hypotension from dehydration, poor intake metabolic encephalopathy, left hemiparesis 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 contine DAPL, statin avoid hypotension, will add midodrine to maintain cerebral perfusion follow up ADMINISTRATIVE NURSING SUPERVISOR, PT (family would prefer to have patient at home) uti due to obstruction urine culture aerococcus rocephin day 3 hematuria due to baldder decompression, monitor cbc dvt prophyalxis - mechanical due to hematuria prognosis guarded - full code - discussed and confirmed with patient daughter and son reason for continued hospitalization: fluctuating mental status, bps, ongoing ADMINISTRATIVE NURSING SUPERVISOR eval, hematuria Quality Stroke Does the patient have a stroke diagnosis?: No VTE Prior VTE?: No VTE Risk Level:: Medical - low VTE Device Contraindication: Treatment Not Indicated VTE Drug Contraindication: Treatment Not Indicated
--- NOTE | 2021-09-15 10:42 | MHC.STROKE ---
PATIENT ARRIVED IN ED WALK-IN 09/12/21 AT 1259, ON 09/13/21 CT HEAD WAS ORDERED FOR LEFT SIDED WEAKNESS, FOLLOWED UP WITH MRI ON 09/14/21. THE MRI WAS + FOR BILATERAL WATERSHELD INFARCTS. PATIENT HAS BILATERAL CAROTID DISEASE. RIGHT OCCLUDED AND LEFT 80-99%, ONSET OF SYMPTOMS UNKNOWN, PRIOR CVA RECENTLY AT [facility], ACUTE ON SUB-ACUTE AND CHRONIC INFARCTS. INELIGIBLE FOR TPA-ALTEPLASE BASED ON UNKNOWN ONSET AND RECENT STROKES. PASSED SWALLOW SCREEN, LIMITED NIHSS SEE DR CALERO NOTE. DISCUSSED CASE WITH HOSPITALIST AND I WILL CONTINUE TO FOLLOW NEEDED. AVOID HYPOTENSION.
--- NOTE | 2021-09-15 15:00 | PC.NURSE ---
family at bedside assisting with care and translations. Pt repo'ed q2. mouth care provided and pt encouraged to cough, suction set up at bedside. pt has +BSx4. granado in place, per md continue all meds once speech garrett assessed pt. speech was at bedside this afternoon. refer to speech eval note for more details. pt following commands. safety and fall precautions in place. call kwon within reach. md assessed pt at bedside, informed of pt's hematuria
[2021-09-15] MEDS: Aspirin Enteric Coated 81 MG TABLET.DR PO (15:30)
[2021-09-15] MEDS: Atorvastatin Calcium 80 MG TABLET PO (15:30)
[2021-09-15] MEDS: polyethylene glycoL 3350 17 GM POWD.PACK PO (15:31)
[2021-09-15] MEDS: Tamsulosin HCL 0.4 MG CAPSULE PO (15:31)
[2021-09-15] MEDS: Milk of Magnesia 30 ML ORAL.SUSP PO (15:31)
[2021-09-15] MEDS: Clopidogrel Bisulfate 75 MG TABLET PO (15:31)
[2021-09-15] MEDS: Midodrine HCl 5 MG TABLET PO ×2 (15:36→21:52)
--- NOTE | 2021-09-15 15:55 | MHC.SL.SWA ---
Speech Pathologist Impression: Oropharyngeal dysphagia Risk of Aspiration Due to: Neurological Condition Reduced Cognition Dysphasia Diet Status: Upgrade Liquid Consistency and Strategies for Safe Swallow: Liquid Intake Recommendation: Thin Liquid Intake Strategies: Small Sips No Straws Solid Food Consistency: Dietary Recommendations: Chopped/Advanced (NDD3) Additional Modifications to Solid Foods: Patient re-evaluated- No s/s of aspiration w/ PO trials this date. Recommend upgrade to CHOPPED/ADVANCED (NDD3) diet with sauce/gravy for ease of mastication with THIN liquids, pills CRUSHED in PUREE. Recommend total 1:1 supervision for all PO intake, monitor closely for any s/s of aspiration, ensure aspiration precautions, provide assistance as needed with tray set up and throughout meal. Discussed w/ RN on floor. Sent [place] Message to MD, RN, RD w/ recommendations. Diet order updated by MD. If concern persists, patient may benefit from MBSS during inpatient stay if indicated or on outpatient basis to rule in/out silent aspiration. FLAT LOCKER will continue to follow. Oral Medication Intake: Crushed with Puree Please contact the pharmacy regarding appropriate crushable or liquid drug formulations that are available whenever modified delivery is recommended. Compensatory Strategies and Precautions to be Taken for Safe Swallow: Sitting Upright (90 deg) No Straw Liquids from Cup Liquids from Spoon Small Bites and Sips Alternate Liquids/Solids Rate of Ingestion Change Supervision While Eating and Drinking for Safe Swallow: Total Assistance (1:1) Swallowing Recommended Treatments: Compens. Strategy Educat. Recommendation for Speech: Inpatient Speech Therapy Comment: FLAT LOCKER will continue to follow. Timber Sizer Operator Clinican/Clinical Fellow: No Supervisory Statement: I have reviewed and agree with the student/clinical fellow's documentation: N/A Speech Language Pathologist: Marion Monsivais M.A., [facility]FLAT LOCKER
[2021-09-15] MEDS: Lactulose 20 GM/30 ML SOLUTION 10 GM PO (18:28)
[2021-09-15] MEDS: clonazePAM 0.5 MG TABLET 0.25 MG PO (21:51)
[2021-09-15] MEDS: PARoxetine HCL 20 MG TABLET PO (21:51)
[2021-09-15] MEDS: Mirtazapine 7.5 MG TABLET PO (21:52)
[2021-09-16] VITALS: BP 126/64; PULSE 82; RESP 15; TEMP 36.2; O2SAT 97
[2021-09-16 04:00] VITALS: BP 150/81; PULSE 86; RESP 15; TEMP 36.4; O2SAT 98
[2021-09-16] MEDS: cefTRIAXone sodium 1 GM in 0.9 % Sodium Chloride 50 ML IV (06:26)
[2021-09-16 07:06] LABS: Hematocrit 35.8 % (42.0-52.0); Hemoglobin 11.1 g/dl (14.0-18.0); Mean Corpuscular Hemoglobin 28.3 pg (27.0-33.0); Mean Corpuscular Volume 91.3 fL (80.0-98.0); Mean Platelet Volume 10.3 fL (9.4-12.4); Platelet Count 260 X10*3/uL (160-400); Red Blood Count 3.92 X10*6/uL (4.60-5.80); Red Cell Distribution Width 12.3 % (11.0-16.0); White Blood Count 16.3 X10*3/uL (4.8-10.8)
[2021-09-16 07:24] LABS: Anion Gap 12 (12-20); Blood Urea Nitrogen 22 mg/dL (9-16); Calcium 8.5 mg/dL (8.4-10.2); Carbon Dioxide 34 mmol/L (22-29); Chloride 101 mmol/L (96-108); Creatinine Clr Calc Pharmacy 44.6; Estimated Glomerular Filt Rate > 60; Glucose Fasting 112 mg/dL (60-99); Potassium 4.5 mmol/L (3.3-5.1); Sodium 142 mmol/L (135-145)
[2021-09-16 08:00] VITALS: BP 144/82; PULSE 90; RESP 19; TEMP 36.6; O2SAT 98
[2021-09-16] MEDS: clonazePAM 0.5 MG TABLET 0.25 MG PO ×2 (09:12→22:01)
[2021-09-16] MEDS: Aspirin Enteric Coated 81 MG TABLET.DR PO (09:12)
[2021-09-16] MEDS: Midodrine HCl 5 MG TABLET PO ×3 (09:12→22:01)
[2021-09-16] MEDS: Atorvastatin Calcium 80 MG TABLET PO (09:12)
[2021-09-16] MEDS: Tamsulosin HCL 0.4 MG CAPSULE PO (09:12)
[2021-09-16] MEDS: Docusate Sodium 100 MG CAPSULE PO ×2 (09:12→22:01)
[2021-09-16] MEDS: polyethylene glycoL 3350 17 GM POWD.PACK PO (09:12)
[2021-09-16] MEDS: Clopidogrel Bisulfate 75 MG TABLET PO (09:12)
--- NOTE | 2021-09-16 09:40 | MHC.CM.PN ---
CM met with Patient and family (Son/Lexi @ [phone]) to address Son's questions regarding the completion of FMLA paperwork.A referral has been made to [facility].
--- NOTE | 2021-09-16 10:55 | MHC.SLORD ---
Speech Language Pathology Order Status: Attempted to see patient for dysphagia treatment this morning. Patient was sound asleep- No PO trials given. RN reported patient has been doing well with meals. Patient's son and daughter were present, also reported that patient has not had any difficulties eating or drinking, tolerating meals without any coughing or choking. Patient's breakfast tray appeared to be 100% eaten. Patient is on chopped/advanced (NDD3) diet with thin liquids, pills crushed in puree w/ aspiration precautions. BAND SAW FILER will continue to follow.
[2021-09-16 12:00] VITALS: BP 91/56; PULSE 81; RESP 19; TEMP 36.2; O2SAT 95
[2021-09-16 15:23] VITALS: BP 107/51; PULSE 84; RESP 18; TEMP 36.8; O2SAT 93
--- NOTE | 2021-09-16 15:24 | HO.PM.IMPN ---
Subjective Subjective Date of Service: 09/16/21 Interval History: seen and evaluated, denies any Fever Reported lower abdominal pain Granado catheter in place reporting constipation Family at the bedside No fever, chills But reports generalized weakness No chest pain, palpitation No shortness of breath or coughing No abdominal pain, nausea or vomiting lower abdominal pain, Granado catheter in place No any rash or wounds Physical Exam Vital Signs: Vital Signs: Last Vital Signs Temp 97.1 F 09/16/21 12:00 Pulse 81 09/16/21 12:00 Resp 19 09/16/21 12:00 BP 91/56 L 09/16/21 12:00 Pulse Ox 95 09/16/21 12:00 O2 Del Method 09/16/21 12:00 O2 Flow Rate 4 09/16/21 08:00 BMI result Body Mass Index 19.7 Const: Other: Constitutional : Alert, Interactive, not in distress Neck : Normal inspection, Supple Cardiovascular : RRR, no JVP, no lower extremity edema Respiratory : fair bilateral air entry, Basal fine crackles, wheezes or rhonchi Gastrointestinal: soft, lax, Normal bowel sounds, Non tender Skin : Warm, Dry Neurological : Alert, interactive upon stimulation, week, left-sided weakness. Objective Data Active Medications Acetaminophen (Acetaminophen 325 Mg Tablet) 650 mg PO Q6H PRN PRN Reason: Pain, Mild (Pain Scale 1-3) Last Admin: 09/13/21 20:53 Dose: 650 mg Documented By: AURELIO Aspirin (Aspirin Enteric Coated 81 Mg Tablet.) 81 mg PO DAILY [facility] Last Admin: 09/16/21 09:12 Dose: 81 mg Documented By: PJ-CONCHIS Atorvastatin Calcium (Atorvastatin Calcium 80 Mg Tablet) 80 mg PO DAILY [facility] Last Admin: 09/16/21 09:12 Dose: 80 mg Documented By: TARIK Clonazepam (Clonazepam 0.5 Mg Tablet) 0.25 mg PO BID [facility] Last Admin: 09/16/21 09:12 Dose: 0.25 mg Documented By: TARIK Clopidogrel Bisulfate (Clopidogrel Bisulfate 75 Mg Tablet) 75 mg PO DAILY [facility] Last Admin: 09/16/21 09:12 Dose: 75 mg Documented By: TARIK Docusate Sodium (Docusate Sodium 100 Mg Capsule) 100 mg PO BID [facility] Last Admin: 09/16/21 09:12 Dose: 100 mg Documented By: TARIK Ergocalciferol (Ergocalciferol (Vitamin D2) 1,250 Mcg Capsule) 1,250 mcg PO Fr [facility] Ceftriaxone Sodium 1 gm/ (Sodium Chloride) 50 mls @ 100 mls/hr IV Q24H [facility] Last Infusion: 09/16/21 09:20 Dose: 0 mls/hr Documented By: TARIK Lactulose (Lactulose 20 Gm/30 Ml Solution) 10 gm PO BEDTIME [facility] Last Admin: 09/15/21 18:28 Dose: 10 gm Documented By: MAIA Magnesium Hydroxide (Milk Of Magnesia 30 Ml Oral.Susp) 30 ml PO DAILY PRN PRN Reason: Constipation Last Admin: 09/15/21 15:31 Dose: 30 ml Documented By: TARIK Midodrine (Midodrine Hcl 5 Mg Tablet) 5 mg PO TID [facility] Last Admin: 09/16/21 14:00 Dose: 5 mg Documented By: TARIK Mineral Oil (Mineral Oil Enema 133 Ml Enema) 133 ml [place] DAILY PRN PRN Reason: constipation Mirtazapine (Mirtazapine 7.5 Mg Tablet) 7.5 mg PO BEDTIME [facility] Last Admin: 09/15/21 21:52 Dose: 7.5 mg Documented By: CAROLYN Ondansetron HCl (Ondansetron Hcl 4 Mg/2 Ml Vial) 4 mg IVPUSH Q8H PRN PRN Reason: Nausea and Vomiting Paroxetine HCl (Paroxetine Hcl 20 Mg Tablet) 20 mg PO BEDTIME [facility] Last Admin: 09/15/21 21:51 Dose: 20 mg Documented By: CAROLYN Polyethylene Glycol (Polyethylene Glycol 3350 17 Gm Powd.Pack) 17 gm PO DAILY [facility] Last Admin: 09/16/21 09:12 Dose: 17 gm Documented By: TARIK Sodium Chloride (0.9 % Sodium Chloride Flush 3 Ml Syringe) 3 ml IVFLUSH QSHIFT [facility] Last Admin: 09/16/21 07:33 Dose: Not Given Documented By: TARIK Non-Admin Reason: assessed Tamsulosin HCl (Tamsulosin Hcl 0.4 Mg Capsule) 0.4 mg PO DAILY [facility] Last Admin: 09/16/21 09:12 Dose: 0.4 mg Documented By: TARIK Labs CBC & Chem 7: 09/16/21 06:43 09/16/21 06:43 Labs: Laboratory Results - last 24 hr 09/16/21 09/16/21 06:43 06:43 MCV 91.3 MCH 28.3 MCHC 31.0 RDW 12.3 Plt Count 260 MPV 10.3 Absolute Nucleated RBC 0.000 Nucleated RBC % (auto) 0.0 Anion Gap 12 Estim Creat Clear Calc 44.6 Estimated GFR > 60 Fasting Glucose 112 H Calcium 8.5 Assessment and Plan (1) Cerebral infarction: Status: Acute (2) TYRESE (acute kidney injury): Status: Acute (3) UTI (urinary tract infection): Status: Acute (4) Bladder outflow obstruction: Status: Acute (5) Constipation: Status: Acute Plan 86M presented with abdominal distension abdominal distention due to recurrent urinary obstruction complicated by bilateral hydronephrosis and TYRESE s/p granado, (2.3L residual) continue granado, added flomax, outpatient tyrese resolved chronic constipation continue lactulose, miralax, enema prn, gi following was likely due to bladder distension to use Enema acute hypoxic respiratory failure due to aspiration pneumonitis vs aspiration pneumonia not spesis, hypotension from dehydration, poor intake metabolic encephalopathy, left hemiparesis MRI with multiple cvas of varying acuity CD with total occlusion of aaron, 80-99% of LICA not candidate for CEA, would refer for elective stenting to [facility] [place] on discharge. contine DAPL, statin avoid hypotension, will add midodrine to maintain cerebral perfusion follow up DE ICER INSTALLER, PT (family would prefer to have patient at home) uti due to obstruction urine culture aerococcus rocephin day 4 hematuria improving due to baldder decompression, monitor cbc dvt prophyalxis - mechanical due to hematuria prognosis guarded - full code reason for continued hospitalization: fluctuating mental status, bps, ongoing DE ICER INSTALLER eval, hematuria pending safe discharge plan Quality Stroke Does the patient have a stroke diagnosis?: No VTE Prior VTE?: No VTE Risk Level:: Medical - low VTE Device Contraindication: Treatment Not Indicated VTE Drug Contraindication: Treatment Not Indicated
--- NOTE | 2021-09-16 15:51 | PC.NURSE ---
Family at bedside assisting with care. Case management and MD informed pt's son needs FMLA form filled out and would like home care for pt. credit risk manager spoke with family. MD assessed pt and spoke with family today. pth bathed this shift. enema given as ordered w/ + effect. safety an fall precautions in place. call kwon within reach. scant amt of epistaxis in right nare noted. pt repo'ed q2.
[2021-09-16 19:23] VITALS: BP 110/89; PULSE 89; RESP 18; TEMP 37.1; O2SAT 93
[2021-09-16] MEDS: Lactulose 20 GM/30 ML SOLUTION 10 GM PO (22:01)
[2021-09-16] MEDS: PARoxetine HCL 20 MG TABLET PO (22:01)
[2021-09-16] MEDS: Mirtazapine 7.5 MG TABLET PO (22:01)
[2021-09-17] VITALS (7 sets, daily range): BP systolic 103–134; BP diastolic 62–71; PULSE 84–101; RESP 14–20; TEMP 36.2–37.2; O2SAT 90–95
[2021-09-17] MEDS: 0.9 % Sodium Chloride Flush 3 ML SYRINGE IVFLUSH ×4 (01:13→21:52)
[2021-09-17] MEDS: cefTRIAXone sodium 1 GM in 0.9 % Sodium Chloride 50 ML IV (05:59)
[2021-09-17 07:40] LABS: Anion Gap 11 (12-20); Blood Urea Nitrogen 24 mg/dL (9-16); Calcium 8.4 mg/dL (8.4-10.2); Carbon Dioxide 34 mmol/L (22-29); Chloride 98 mmol/L (96-108); Creatinine Clr Calc Pharmacy 41.3; Estimated Glomerular Filt Rate > 60; Glucose Random 124 mg/dL (60-115); Potassium 4.7 mmol/L (3.3-5.1); Sodium 138 mmol/L (135-145)
[2021-09-17] MEDS: Docusate Sodium 100 MG CAPSULE PO ×2 (09:20→21:40)
[2021-09-17] MEDS: Tamsulosin HCL 0.4 MG CAPSULE PO (09:20)
[2021-09-17] MEDS: Midodrine HCl 5 MG TABLET PO ×3 (09:20→21:40)
[2021-09-17] MEDS: clonazePAM 0.5 MG TABLET 0.25 MG PO ×2 (09:20→21:40)
[2021-09-17] MEDS: Atorvastatin Calcium 80 MG TABLET PO (09:20)
[2021-09-17] MEDS: polyethylene glycoL 3350 17 GM POWD.PACK PO (09:21)
--- NOTE | 2021-09-17 13:07 | PM.CNGS ---
History of Present Illness Consult details Consult date: 09/17/21 Reason for consult: other (Carotid stenosis with stroke) Narrative: 86-year-old gentleman who presented to [facility] found to have acute on chronic strokes on MRI. Subsequent ultrasound demonstrated left-sided occlusion and high-grade carotid stenosis. I had discussion with the daughter. Approximate month ago he was in his usual state of health where he was ambulatory and was able to perform activities of daily living including eating and grocery shopping appears to have deteriorated over the past month. This all began after visit to [facility]. He has progressively gotten weak since that point and has diminished in function. Upon our workup he was noted to have a stroke. He now presents to me for vascular evaluation. Review of Systems Review of Systems: Yes all other systems are reviewed and are negative Constitutional: Constitutional: Reports no additional constitutional complaints ENT: Reports Normal hearing present Cardiovascular: Cardiovascular: Denies chest pain, Denies chest pain at rest, Denies chest pain with activity and Denies pedal edema Respiratory: Respiratory: Denies cough Gastrointestinal: Gastrointestinal: Denies abdominal pain Musculoskeletal: Musculoskeletal: Denies abnormal gait, Denies muscle cramps and Denies radiating pain into limb Integumentary/Breasts: Skin/Breast: Denies skin ulcer and Denies wounds Neurologic: Reports Normal hearing present and Denies abnormal gait Psychiatric: Psychiatric: Reports no additional psychiatric complaints PMFSH Past Medical History Medical History (Updated 09/17/21 @ 13:11 by Rishi Joseph MD) Chronic constipation Dementia Depression Full code status GERD (gastroesophageal reflux disease) H/O urinary retention HTN (hypertension) IBS (irritable bowel syndrome) Urethral stricture Weight loss Family History Family History Father No problems noted. Mother No problems noted. Son No problems noted. Surgical History Surgical History History of prostate surgery Social History Social History Household Members Other:: lives with - adult children involved Housing: Apartment Alcohol intake: never Patient Tobacco Use Status: Former Tobacco user e-Cigarette/Vaping Use: Never Used Second Hand Smoke Exposure: No service: No Current occupational status: retired Cognitive needs: No Hearing needs: No Vision needs: No Meds Allergies Allergy/AdvReac Type Severity Reaction Status Date / Time No Known Allergies Allergy Verified 09/10/21 13:35 Active Medications: Current Medications Acetaminophen (Acetaminophen 325 Mg Tablet) 650 mg PO Q6H PRN PRN Reason: Pain, Mild (Pain Scale 1-3) Last Admin: 09/13/21 20:53 Dose: 650 mg Aspirin (Aspirin Enteric Coated 81 Mg Tablet.Dr) 81 mg PO DAILY [facility] Last Admin: 09/16/21 09:12 Dose: 81 mg Atorvastatin Calcium (Atorvastatin Calcium 80 Mg Tablet) 80 mg PO DAILY [facility] Last Admin: 09/17/21 09:20 Dose: 80 mg Clonazepam (Clonazepam 0.5 Mg Tablet) 0.25 mg PO BID [facility] Last Admin: 09/17/21 09:20 Dose: 0.25 mg Clopidogrel Bisulfate (Clopidogrel Bisulfate 75 Mg Tablet) 75 mg PO DAILY [facility] Last Admin: 09/16/21 09:12 Dose: 75 mg Docusate Sodium (Docusate Sodium 100 Mg Capsule) 100 mg PO BID [facility] Last Admin: 09/17/21 09:20 Dose: 100 mg Ergocalciferol (Ergocalciferol (Vitamin D2) 1,250 Mcg Capsule) 1,250 mcg PO Fr [facility] Ceftriaxone Sodium 1 gm/ (Sodium Chloride) 50 mls @ 100 mls/hr IV Q24H [facility] Last Infusion: 09/17/21 06:41 Dose: Infused Lactulose (Lactulose 20 Gm/30 Ml Solution) 10 gm PO BEDTIME [facility] Last Admin: 09/16/21 22:01 Dose: 10 gm Magnesium Hydroxide (Milk Of Magnesia 30 Ml Oral.Susp) 30 ml PO DAILY PRN PRN Reason: Constipation Last Admin: 09/15/21 15:31 Dose: 30 ml Midodrine (Midodrine Hcl 5 Mg Tablet) 5 mg PO TID [facility] Last Admin: 09/17/21 09:20 Dose: 5 mg Mineral Oil (Mineral Oil Enema 133 Ml Enema) 133 ml RI DAILY PRN PRN Reason: constipation Mirtazapine (Mirtazapine 7.5 Mg Tablet) 7.5 mg PO BEDTIME [facility] Last Admin: 09/16/21 22:01 Dose: 7.5 mg Ondansetron HCl (Ondansetron Hcl 4 Mg/2 Ml Vial) 4 mg IVPUSH Q8H PRN PRN Reason: Nausea and Vomiting Paroxetine HCl (Paroxetine Hcl 20 Mg Tablet) 20 mg PO BEDTIME [facility] Last Admin: 09/16/21 22:01 Dose: 20 mg Polyethylene Glycol (Polyethylene Glycol 3350 17 Gm Powd.Pack) 17 gm PO DAILY [facility] Last Admin: 09/17/21 09:21 Dose: 17 gm Sodium Chloride (0.9 % Sodium Chloride Flush 3 Ml Syringe) 3 ml IVFLUSH QSHIFT [facility] Last Admin: 09/17/21 09:21 Dose: 3 ml Sodium Chloride (Sodium Chloride 0.65 % Nasal 44 Ml Sprbtl) 1 spray NOSTRIL-B Q1H PRN PRN Reason: dry nose Tamsulosin HCl (Tamsulosin Hcl 0.4 Mg Capsule) 0.4 mg PO DAILY [facility] Last Admin: 09/17/21 09:20 Dose: 0.4 mg Physical Exam Vital Signs: Vital Signs: Last Vital Signs Temp 99.0 F 09/17/21 11:54 Pulse 96 09/17/21 11:54 Resp 18 09/17/21 11:54 BP 103/62 09/17/21 11:54 Pulse Ox 95 09/17/21 11:54 O2 Del Method 09/17/21 11:54 O2 Flow Rate 4 09/16/21 08:00 BMI result Body Mass Index 19.7 Const: General: cooperative, comfortable and no acute distress Nutritional Appearance: underweight Orientation/consciousness: oriented to person, oriented to place and oriented to time HEENT: Head: Yes normal to inspection Neck: Neck: Yes normal visual inspection Carotids: no bruits Chest: Chest palpation & inspection: normal inspection of the chest Resp: Effort & Inspection: normal respiratory effort and able to speak in complete sentences Auscultation: clear to auscultation bilaterally, no crackles, no rales, no rhonchi and no wheezes Cardio: Rate: regular rate Rhythm: regular rhythm Heart sounds: S1 normal heart sound present and S2 normal heart sound present Bruits: no carotid bruits Peripheral pulses: Peripheral pulses 2+ throughout GI: Inspection: Yes normal to inspection Skin: Wounds: no wounds Hair: normal Neuro: General: oriented to person, oriented to place and oriented to time Cranial nerves: Yes CN's II-XII intact bilaterally and Yes Normal hearing present Cognition (Neuro): normal cognition Motor exam (neuro): 5/5 motor strength present throughout Extrem: Other: venous exam: No significant superficial varicosities or spider telangiectasias, minimal edema General: No clubbing, No cyanosis and No edema Psych: Appearance: grossly normal Mental Status: mental status grossly normal Speech and movement: Normal speech and movement present Results Labs Result diagrams: 09/16/21 06:43 09/17/21 06:48 Labs: Abnormal lab results 09/17/21 Range/Units 06:48 Carbon Dioxide 34 H (22-29) mmol/L Anion Gap 11 L (12-20) BUN 24 H (9-16) mg/dL Random Glucose 124 H D (60-115) mg/dL BMP 09/17/21 06:48 Sodium 138 Potassium 4.7 Chloride 98 Carbon Dioxide 34 H BUN 24 H Creatinine 1.07 Calcium 8.4 Urine 09/12/21 Range/Units 21:28 Urine Color YELLOW Urine Appearance CLEAR Urine pH 6.0 (5.0-8.0) Ur Specific [place] 1.010 (1.005-1.025) Urine Protein 1+ H (NEG-TRACE) MG/DL Urine Glucose (UA) NEG (NEG) MG/DL All other labs normal. Assessment and Plan (1) Stroke due to stenosis of carotid artery: Status: Acute Plan In short patient is found to have carotid stenosis with stroke. I have taken the liberty of ordering CT angiogram. We will have to get subsequent cardiac risk stratification to see if he would withstand an open carotid endarterectomy. Depending on results we may have to look into other options as well. I have discussed the findings with the family and the daughter. I will revisit them tomorrow after results of CT scan. Thank you for allowing me to participate in his care. If there are any questions or concerns please do not hesitate to contact us. Procedures Date of Service Date of Service: 09/17/21
--- NOTE | 2021-09-17 13:12 | MHC.SLORD ---
Speech Language Pathology Order Status: Attempted to see patient for dysphagia treatment. Patient was unavailable, toileting. Discussed w/ MD and RN- Patient reportedly tolerating diet well. No reported concerns at this time. Continue with current diet CHOPPED/ADVANCED (NDD3) solids and THIN liquids. Will continue to follow.
[2021-09-17] MEDS: iohexoL 350 MG/ML 100 ML INFUS..BTL IV (13:21)
--- NOTE | 2021-09-17 15:48 | P.PNIM_ITS ---
Subjective Subjective Date of Service: 09/17/21 Interval History: seen and evaluated, denies any Fever More interactive, tolerating diet Granado catheter to be removed had bowel movement Family at the bedside No fever, chills But reports generalized weakness No chest pain, palpitation No shortness of breath or coughing No abdominal pain, nausea or vomiting lower abdominal pain improved, Granado catheter in place No any rash or wounds Physical Exam Vital Signs: Vital Signs: Last Vital Signs Temp 97.1 F 09/17/21 15:32 Pulse 101 H 09/17/21 15:32 Resp 14 09/17/21 15:32 BP 134/66 09/17/21 15:32 Pulse Ox 91 L 09/17/21 15:32 O2 Del Method 09/17/21 15:32 O2 Flow Rate 4 09/16/21 08:00 BMI result Body Mass Index 19.7 Const: Other: Constitutional : Alert, Interactive, not in distress Neck : Normal inspection, Supple Cardiovascular : RRR, no JVP, no lower extremity edema Respiratory : fair bilateral air entry, Basal fine crackles, wheezes or rhonchi Gastrointestinal: soft, lax, Normal bowel sounds, Non tender Skin : Warm, Dry Neurological : Alert, interactive upon stimulation, week, left-sided weakness. Objective Data Active Medications Acetaminophen (Acetaminophen 325 Mg Tablet) 650 mg PO Q6H PRN PRN Reason: Pain, Mild (Pain Scale 1-3) Last Admin: 09/13/21 20:53 Dose: 650 mg Documented By: AURELIO Aspirin (Aspirin Enteric Coated 81 Mg Tablet.) 81 mg PO DAILY [facility] Last Admin: 09/16/21 09:12 Dose: 81 mg Documented By: TARIK Atorvastatin Calcium (Atorvastatin Calcium 80 Mg Tablet) 80 mg PO DAILY [facility] Last Admin: 09/17/21 09:20 Dose: 80 mg Documented By: ASHU Clonazepam (Clonazepam 0.5 Mg Tablet) 0.25 mg PO BID [facility] Last Admin: 09/17/21 09:20 Dose: 0.25 mg Documented By: ASHU Clopidogrel Bisulfate (Clopidogrel Bisulfate 75 Mg Tablet) 75 mg PO DAILY [facility] Last Admin: 09/16/21 09:12 Dose: 75 mg Documented By: TARIK Docusate Sodium (Docusate Sodium 100 Mg Capsule) 100 mg PO BID [facility] Last Admin: 09/17/21 09:20 Dose: 100 mg Documented By: ASHU Ergocalciferol (Ergocalciferol (Vitamin D2) 1,250 Mcg Capsule) 1,250 mcg PO Fr [facility] Ceftriaxone Sodium 1 gm/ (Sodium Chloride) 50 mls @ 100 mls/hr IV Q24H [facility] Last Infusion: 09/17/21 06:41 Dose: 0 mls/hr Documented By: RADHA Lactulose (Lactulose 20 Gm/30 Ml Solution) 10 gm PO BEDTIME [facility] Last Admin: 09/16/21 22:01 Dose: 10 gm Documented By: LAUREN Magnesium Hydroxide (Milk Of Magnesia 30 Ml Oral.Susp) 30 ml PO DAILY PRN PRN Reason: Constipation Last Admin: 09/15/21 15:31 Dose: 30 ml Documented By: TARIK Midodrine (Midodrine Hcl 5 Mg Tablet) 5 mg PO TID [facility] Last Admin: 09/17/21 09:20 Dose: 5 mg Documented By: ASHU Mineral Oil (Mineral Oil Enema 133 Ml Enema) [address] DAILY PRN PRN Reason: constipation Mirtazapine (Mirtazapine 7.5 Mg Tablet) 7.5 mg PO BEDTIME [facility] Last Admin: 09/16/21 22:01 Dose: 7.5 mg Documented By: LAUREN Ondansetron HCl (Ondansetron Hcl 4 Mg/2 Ml Vial) 4 mg IVPUSH Q8H PRN PRN Reason: Nausea and Vomiting Paroxetine HCl (Paroxetine Hcl 20 Mg Tablet) 20 mg PO BEDTIME [facility] Last Admin: 09/16/21 22:01 Dose: 20 mg Documented By: LAUREN Polyethylene Glycol (Polyethylene Glycol 3350 17 Gm Powd.Pack) 17 gm PO DAILY [facility] Last Admin: 09/17/21 09:21 Dose: 17 gm Documented By: ASHU Sodium Chloride (0.9 % Sodium Chloride Flush 3 Ml Syringe) 3 ml IVFLUSH QSHIFT [facility] Last Admin: 09/17/21 09:21 Dose: 3 ml Documented By: ASHU Sodium Chloride (Sodium Chloride 0.65 % Nasal 44 Ml Sprbtl) 1 spray NOSTRIL-B Q1H PRN PRN Reason: dry nose Tamsulosin HCl (Tamsulosin Hcl 0.4 Mg Capsule) 0.4 mg PO DAILY [facility] Last Admin: 09/17/21 09:20 Dose: 0.4 mg Documented By: ASHU Labs CBC & Chem 7: 09/16/21 06:43 09/17/21 06:48 Labs: Laboratory Results - last 24 hr 09/17/21 06:48 Anion Gap 11 L Estim Creat Clear Calc 41.3 Estimated GFR > 60 Random Glucose 124 H D Calcium 8.4 Assessment and Plan (1) Stroke due to stenosis of carotid artery: Status: Acute (2) Cerebral infarction: Status: Acute (3) UTI (urinary tract infection): Status: Acute (4) Constipation: Status: Acute (5) Bladder outflow obstruction: Status: Acute Plan 86M presented with abdominal distension urinary retention due to recurrent urinary obstruction complicated by bilateral hydronephrosis and TYRESE s/p granado, (2.3L residual) continue Flomax To DC Granado and monitor with bladder scan chronic constipation had bowel movement continue lactulose, miralax, enema prn, gi following was likely due to bladder distension acute hypoxic respiratory failure due to aspiration pneumonitis vs aspiration pneumonia not spesis, hypotension from dehydration, poor intake metabolic encephalopathy, left hemiparesis MRI with multiple cvas of varying acuity CD with total occlusion of aaron, 80-99% of LICA not candidate for CEA, would refer for elective stenting to [facility] on discharge. contine DAPL, statin avoid hypotension, will add midodrine to maintain cerebral perfusion follow up [employer], PT carotid artery disease Stenosis in the left internal carotid to do CTA Of the neck Pending vascular surgery evaluation uti due to obstruction urine culture aerococcus rocephin day 5 hematuria improving due to baldder decompression, monitor cbc dvt prophyalxis - mechanical due to hematuria prognosis guarded - full code reason for continued hospitalization: pending workup for possible CEA for carotid stenosis, pending safe discharge plan Quality Stroke Does the patient have a stroke diagnosis?: No VTE Prior VTE?: No VTE Risk Level:: Medical - low VTE Device Contraindication: Treatment Not Indicated VTE Drug Contraindication: Treatment Not Indicated
[2021-09-17] MEDS: PARoxetine HCL 20 MG TABLET PO (21:40)
[2021-09-17] MEDS: Mirtazapine 7.5 MG TABLET PO (21:40)
[2021-09-17] MEDS: Lactulose 20 GM/30 ML SOLUTION 10 GM PO (21:41)
[2021-09-18] VITALS: BP 114/59; PULSE 81; RESP 16; TEMP 37.5; O2SAT 92
[2021-09-18 03:17] VITALS: BP 149/68; PULSE 84; RESP 16; TEMP 36.3; O2SAT 95
[2021-09-18] MEDS: cefTRIAXone sodium 1 GM in 0.9 % Sodium Chloride 50 ML IV (05:12)
[2021-09-18 08:00] VITALS: BP 131/68; PULSE 98; RESP 19; TEMP 36.1; O2SAT 98
[2021-09-18] MEDS: Midodrine HCl 5 MG TABLET PO ×3 (09:10→21:57)
[2021-09-18] MEDS: polyethylene glycoL 3350 17 GM POWD.PACK PO (09:10)
[2021-09-18] MEDS: Tamsulosin HCL 0.4 MG CAPSULE PO (09:10)
[2021-09-18] MEDS: Atorvastatin Calcium 80 MG TABLET PO (09:10)
[2021-09-18] MEDS: Ergocalciferol (Vitamin D2) 1,250 MCG CAPSULE 1250 MCG PO (09:13)
[2021-09-18] MEDS: Docusate Sodium 100 MG CAPSULE PO ×2 (09:15→21:57)
[2021-09-18] MEDS: 0.9 % Sodium Chloride Flush 3 ML SYRINGE IVFLUSH ×2 (09:18→22:07)
--- NOTE | 2021-09-18 10:28 | HO.VASCPN ---
Subjective Subjective Date of Service: 09/18/21 Patient reports: no new complaints and feels better Interval history: Patient seen and examined. No significant events. Appears to be doing significantly better since admission. He has undergone CT angiogram of the carotids yesterday. He now is for follow-up. Physical Exam Vital Signs: Vital Signs: Last Vital Signs Temp 97.0 F 09/18/21 08:00 Pulse 98 09/18/21 08:00 Resp 19 09/18/21 08:00 BP 131/68 09/18/21 08:00 Pulse Ox 98 09/18/21 08:00 O2 Del Method 09/18/21 08:00 O2 Flow Rate 4 09/16/21 08:00 BMI result Body Mass Index 19.7 Const: General: no acute distress and lethargic Nutritional Appearance: thin Orientation/consciousness: oriented to person, oriented to place, oriented to time and lethargic HEENT: Head: Yes normal to inspection Neck: Carotids: no bruits Chest: Chest palpation & inspection: normal inspection of the chest Resp: Effort & Inspection: normal respiratory effort and able to speak in complete sentences Auscultation: clear to auscultation bilaterally Cardio: Rate: regular rate Heart sounds: S1 normal heart sound present and S2 normal heart sound present GI: Inspection: Yes normal to inspection Skin: General skin exam: no rashes or lesions noted Wounds: no wounds Neuro: General: oriented to person, oriented to place, oriented to time and CN's II-XI intact bilaterally Extrem: General: Yes normal to inspection, Yes full ROM and Yes no clubbing, cyanosis or edema Psych: Appearance: grossly normal and well kempt Speech and movement: Normal speech and movement present Affect: normal affect Progress Note: A&P Assessment and plan (1) Stroke due to stenosis of carotid artery: Status: Acute Assessment and Plan: In short patient has carotid stenosis with stroke. Right side occluded and left side at 50%. I did review these findings with the family son daughter and were at bedside. At the current time I would not recommend any intervention. I would recommend routine surveillance regarding the carotids as an outpatient. Would recommend continued use a statin and continued use of dual anti-platelet agents of aspirin and Plavix. Stable from my perspective. Can follow up with me as an outpatient. Thank you for allowing us to assist in this patient's care. If there are any questions or concerns please do not hesitate to contact us. Time Spent With Patient Time: Total time spent is greater than 50% in coordination of care (as documented) at patient's floor/unit and/or counseling patient: Procedures Date of Service Date of Service: 09/18/21 Quality Stroke Does the patient have a stroke diagnosis?: No VTE Prior VTE?: No VTE Risk Level:: Medical - low VTE Device Contraindication: Treatment Not Indicated VTE Drug Contraindication: Treatment Not Indicated
[2021-09-18 11:08] VITALS: BP 131/68; PULSE 98; O2SAT 98
--- NOTE | 2021-09-18 11:59 | MHC.CM.PN ---
Addendum entered by Lindsay Kaplan 09/18/21 16:27: [facility] INDICATED THE CREW WOULD HAVE TO DECIDE IF FAMILY CAN RIDE WITH PT BUT SHE WILL PUT A NOTE ON HIS CHART FOR THEM Addendum entered by Lindsay Kaplan 09/18/21 16:18: COPY OF HCP OBTAINED AND SENT TO [facility] PT WILL DC TO SNF TODAY VIA BLS FAMILY IS AWARE TRANSPORT WILL BE AFTER 1800 HOURS THEY ARE REQUESTING TO HAVE A FAMILY MEMBER RIDE WITH PT REQUEST FORWARDED TO [facility] Addendum entered by Lindsay Kaplan 09/18/21 14:20: CAPRICE MET WITH PTS DAUGHTER TO OBTAIN COPY OF PTS HCP SHE REPORTS HER BROTHER HAS IT IN THE CAR AND WILL BE HERE AT 1500 HOURS. SHE IS AWARE THE PT WILL LIKELY DC TO [facility] TODAY VIA BLS SHE IS ALSO AWARE SHE SHOULD CONTACT THE PTS PCP TO REQUEST A REFERRAL TO [facility] IS ALSO FOLLOWING PTS STR ADMISSION FOR POST DC NEEDS Original Note: CAPRICE MET WITH PTS SON AND DAUGHTER WHO REPORT THE PLAN IS NOW STR THEY REPORT [facility] IS FIRST CHOICE IT IS CLOSE TO PTS HOME SO HIS CAN WALK THERE PER DISCUSSION, THEY WILL CONTACT PCP AND REQUEST A REFERRAL TO [facility]. THEY ALSO ASK THAT A VNA FOLLOW PTS REHAB FOR POST DC SERVICES THEY DO NOT WANT [facility] BUT DO NOT HAVE A PREFERENCE PT IS READY TO DC TODAY PENDING BED AVAILABILITY
[2021-09-18 12:00] VITALS: BP 135/68; PULSE 98; RESP 19; TEMP 36.1; O2SAT 98
--- NOTE | 2021-09-18 12:43 | P.DS_ITS ---
DS: Providers Provider Date of Service: 09/18/21 Date of admission: 09/13/21 09:22 Primary care physician: Joel Christianson MD Consults: 09/13/21 06:05 Consult to Gastroenterology Routine Consulting Provider: Florence Edmond Reason for consultation: severe constipation Has provider been notified: No 09/14/21 12:44 Consult to Neurology Routine Consulting Provider: [facility] Reason for consultation: subacute, ?ongiong acute CVAs 09/17/21 07:44 Consult to Vascular Surgery Routine Consulting Provider: Rishi Joseph Reason for consultation: right carotid artery is occluded.LEFT: 80/99% stenosis left for your eval DS: Diagnosis Discharge Diagnosis (1) 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 Patient last bowel movement was 7 days ago, patient was started on lactulose on Tuesday but has not had a bowel movement since.? Patient reports abdominal pain, no nausea or vomiting, no chest pain, no shortness of breath, no headache or change in vision, reports decreased urine output, no dysuria, and no lower extremity edema.? No fever or chills On initial arrival to the ED patient hemodynamically stable with no significant abnormal vitals Labs are significant for WBC count of WBC count of 21,000, hemoglobin 11.8, hematocrit 38.1, BUN of 41, creatinine of 1.97, with a baseline around 1.04, UA that is positive for leukocyte Estrace, WBC Abdominal pelvic CT showed distended bladder, hydronephrosis in the kidneys and uterus, obstructing bowel pattern, there is also moderate to marked rectosigmoid stool and moderate stool throughout the remainder of the colon. Patient was manually disimpacted in the ED, given multiple enemas but continues to be severely constipated Hospital course The patient was admitted to the hospital for evaluation of lower abdominal pain. Images were consistent with constipation and urinary retention. A Johnson catheter was placed draining 2.3 L of urine at that time with significant improvement of the pain. He was started on laxatives and moved his bowels after an enema was introduced. He was started on tamsulosin as the Johnson catheter was discontinued with bladder scan showing low amount of 100 cc upon repeating scans. He was advised to follow-up as outpatient with Urology. Early on admission he was noted to have acute kidney injury treated with IV fluid with good response as kidney function improved back to baseline. He was noted to have urinary tract infection that was treated with IV antibiotic for total of 7 days. He developed hypoxia shortly after admission and found to have aspiration pneumonia that was treated with IV antibiotics as he was weaned off the oxygen. Cultures remain negative. Noticed to have worsening left-sided weakness on September 14. Evaluated by Neurology as amount MRI was done showing an evidence of likely recent hold stroke. Started on atorvastatin and aspirin. Echo was done showing almost normal cardiac function. Guarded ultrasound was concerning for completely occluded right carotid and significant stenosis in the left carotid. Evaluated by vascular surgery as a CTA was done showing stenosis of only 50%. No intervention recommended at this stage by the vascular surgery with medical management as secondary prevention line. His trend over the left side has improved. Evaluated by speech therapy who recommended NDD 3 diet. Seen by Physical therapy who recommended short-term rehab stay. Start baby aspirin and atorvastatin Discontinue lisinopril and keep metoprolol on hold for the time being Continue to use midodrine to keep blood pressure in the normal upper range Tamsulosin started for enlarged prostate and urine retention. You will need further evaluation as outpatient by Urology. To start physical therapy at the facility Time Spent with Patient Time attestation: Total time spent providing and/or coordinating discharge services: Discharge coordination time: Greater than 30 minutes Quality: Safe Use of Opioids Does Pt have an Active Cancer Diagnosis on the Problem List?: No Quality: Stroke Does the patient have a stroke diagnosis?: Yes Reason for No Anti-thrombotic at DC: N/A - Med Ordered Reason for No Anticoagulant at DC: Not indicated Reason Not Initiating IV-Tpa: Not indicated Reason for No Anti-thrombotic by Day Two: N/A - Med Ordered Reason for No Statin at DC: N/A - Med Ordered Physical Exam Vital Signs: Vital Signs: Last Vital Signs Temp 97.0 F 09/18/21 12:00 Pulse 98 09/18/21 12:00 Resp 19 09/18/21 12:00 BP 135/68 09/18/21 12:00 Pulse Ox 98 09/18/21 12:00 O2 Del Method 09/18/21 12:00 O2 Flow Rate 4 09/16/21 08:00 BMI result Body Mass Index 19.7 Const: Other: Constitutional : Alert, Interactive, not in distress Neck : Normal inspection, Supple Cardiovascular : RRR, no JVP, no lower extremity edema Respiratory : fair bilateral air entry, Basal fine crackles, wheezes or rhonchi Gastrointestinal: soft, lax, Normal bowel sounds, Non tender Skin : Warm, Dry Neurological : Alert, interactive upon stimulation, Improved left-sided weakness. Discharge Plan Discharge Patient Disposition: [facility] Discharge Diagnosis: acute stroke UTI Urine retention Referrals: [facility] [Outside] - 1 Week Joel Christianson MD [Primary Care Provider] - 1 Week Discharge Medications: New atorvastatin 80 mg Tablet 80 mg PO DAILY 30 Days Qty: 30 0RF polyethylene glycol 3350 17 gram Powder In Packet 17 g PO DAILY 30 Days Qty: 30 0RF aspirin 81 mg Tablet,Delayed Release (Dr/Ec) 81 mg PO DAILY 30 Days Qty: 30 0RF tamsulosin 0.4 mg Capsule 0.4 mg PO DAILY 30 Days Qty: 30 0RF docusate sodium 100 mg Capsule 100 mg PO BID 30 Days Qty: 60 0RF midodrine 5 mg Tablet 5 mg PO TID Qty: 90 0RF Continued paroxetine HCl 20 mg tablet 20 mg PO BEDTIME Qty: 90 1RF ergocalciferol (vitamin D2) 1,250 mcg (50,000 unit) capsule 1,250 mcg PO QWEEK Qty: 12 1RF clonazepam 0.25 mg tablet,disintegrating 0.25 mg PO BID Qty: 60 0RF Rx Instructions: administer 30 minutes before bedtime famotidine 20 mg tablet 20 mg PO DAILY PRN (Reason: for indigestion) Qty: 90 1RF lactulose 10 gram/15 mL solution 10 g PO BEDTIME Qty: 237 0RF mirtazapine 7.5 mg tablet 7.5 mg PO BEDTIME Qty: 30 0RF simethicone [Gas Relief (simethicone)] 125 mg tablet,chewable 125 mg PO TID-QID PRN (Reason: abdominal distention) Qty: 90 2RF Held metoprolol succinate 25 mg tablet extended release 24 hr 25 mg PO DAILY 90 Days Qty: 90 1RF Hold Instructions: MD to decide when to restart if SBP>140s within the next week. Discontinued lisinopril 40 mg tablet 40 mg PO DAILY Qty: 90 1RF simvastatin 40 mg tablet 40 mg PO DAILY Qty: 90 1RF Discharge Orders: Discharge Order (Routine); Ordered 09/18/21 Ordered By: Dakota Choe Activity on Discharge: As tolerated Stand Alone Forms: Patient Portal Discharge page Care Plan Goals: Read below Health Concerns: Read below Plan of Treatment: Read below Assessment: You were admitted to the hospital for evaluation of severe lower abdominal pain. Found to have constipation along with urinary retention that needed Johnson catheter placement and laxatives. You were started on tamsulosin with good response as we took the catheter out and you were able to pass urine with no recurrence of the retention. Laxatives helped with moving the bowels. You developed hypoxia and treated for possible aspiration pneumonia and urine infection at the same time with IV antibiotics and steroids with good response as you were weaned off the oxygen. Noted to have worsening left-sided weakness. MRI was done showing evidence of stroke. Evaluated by neurologist who recommended baby aspirin and atorvastatin. Vascular images showed occluded right carotid artery and stenosis in the left 1. Evaluated by vascular surgeon as CTA showed patency of 50%. Start baby aspirin and atorvastatin Discontinue lisinopril and keep metoprolol on hold for the time being Continue to use midodrine to keep blood pressure in the normal upper range Tamsulosin started for enlarged prostate and urine retention. You will need further evaluation as outpatient by Urology. To start physical therapy at the facility
[2021-09-18] MEDS: Aspirin Enteric Coated 81 MG TABLET.DR PO (14:28)
[2021-09-18 15:36] LABS: COVID-19 Test Negative (Negative)
--- NOTE | 2021-09-18 16:33 | MHC.SL.SWA ---
Speech Pathologist Impression: Oropharyngeal dysphagia Risk of Aspiration Due to: Neurological Condition Reduced Cognition Dysphasia Diet Status: No Change Liquid Consistency and Strategies for Safe Swallow: Liquid Intake Recommendation: Thin Liquid Intake Strategies: Small Sips No Straws Solid Food Consistency: Dietary Recommendations: Chopped/Advanced (NDD3) Additional Modifications to Solid Foods: Recommend continue CHOPPED/ADVANCED (NDD3) diet with sauce/gravy for ease of mastication with THIN liquids, pills CRUSHED in PUREE. Recommend total 1:1 supervision for all PO intake, monitor closely for any s/s of aspiration, ensure aspiration precautions, provide assistance as needed with tray set up and throughout meal. Patient has been tolerating diet w/ no reported difficulties. Please re-refer if PRODUCT MARKETING MANAGER can be of further assistance. Oral Medication Intake: Crushed with Puree Please contact the pharmacy regarding appropriate crushable or liquid drug formulations that are available whenever modified delivery is recommended. Compensatory Strategies and Precautions to be Taken for Safe Swallow: Sitting Upright (90 deg) No Straw Liquids from Cup Liquids from Spoon Small Bites and Sips Alternate Liquids/Solids Rate of Ingestion Change Supervision While Eating and Drinking for Safe Swallow: Total Assistance (1:1) Swallowing Recommended Treatments: Compens. Strategy Educat. Recommendation for Speech: ST at next level of care If concern persists, patient may benefit from MBSS to rule in/out silent aspiration. Per Diem Rn Clinican/Clinical Fellow: No Supervisory Statement: I have reviewed and agree with the student/clinical fellow's documentation: N/A Speech Language Pathologist: Marion Monsivais M.A., CCC-PRODUCT MARKETING MANAGER
--- NOTE | 2021-09-18 20:05 | PC.NURSE ---
Attempted to call nurse to nurse report.
[2021-09-18] MEDS: PARoxetine HCL 20 MG TABLET PO (21:57)
[2021-09-18] MEDS: Mirtazapine 7.5 MG TABLET PO (21:57)
[2021-09-18] MEDS: Lactulose 20 GM/30 ML SOLUTION 10 GM PO (21:57)
[2021-09-18 23:36] VITALS: BP 117/66; PULSE 88; RESP 18; TEMP 36.9; O2SAT 94
[2021-09-19 04:07] VITALS: BP 135/82; PULSE 89; RESP 18; TEMP 36.6; O2SAT 98
[2021-09-19] MEDS: Acetaminophen 325 MG TABLET 650 MG PO (05:34)
[2021-09-19] MEDS: cefTRIAXone sodium 1 GM in 0.9 % Sodium Chloride 50 ML IV (05:45)
[2021-09-19 08:00] VITALS: BP 98/56; PULSE 63; RESP 20; TEMP 36.2; O2SAT 93
--- NOTE | 2021-09-19 09:37 | MHC.CM.PN ---
Transport did not transport patient last night. Showed up unannounced this am. Messaged MD RE approval for this am transport, no confirmation. Youth Career Specialist indicated both RN and MD on unit and cleared patient w/transport present. Reached out to SNF; Center accepted patient for 10:00am. Attempted printing of new PCS Form; system would not allow completion (technical issues), as well as would not print new/blank form. Changed date of 09/18/21's form w/initials. Transport accepted date change. Patient safely transferred to SNF.
== END 2021-09-19 09:55 | disposition skilled nursing facility (03) | DRG 689 ==
LOC: HO.ED 20:46 → HO.EDOVER 22:17 → HO.IMC 23:24
PROVIDERS: Hospitalist; Internal Medicine; Nurse Practitioner Family; Admitting Provider Internal Medicine; Emergency Provider Emergency Medicine; PCP Internal Medicine; Visit Provider Student in an Organized Health Care Education/Training Program
DX: N13.6 Pyonephrosis (principal); G93.41 Metabolic encephalopathy; J96.01 Acute respiratory failure with hypoxia; J69.0 Pneumonitis due to inhalation of food and vomit; I63.231 Cerebral infarction due to unspecified occlusion or stenosis of right carotid arteries; F05 Delirium due to known physiological condition; I69.354 Hemiplegia and hemiparesis following cerebral infarction affecting left non-dominant side; K21.9 Gastro-esophageal reflux disease without esophagitis; N17.9 Acute kidney failure, unspecified; K59.01 Slow transit constipation; R31.9 Hematuria, unspecified; F32.A Depression, unspecified; R33.9 Retention of urine, unspecified; F41.9 Anxiety disorder, unspecified; Z20.822 Contact with and (suspected) exposure to COVID-19; Z87.891 Personal history of nicotine dependence; Z79.82 Long term (current) use of aspirin; Z79.899 Other long term (current) drug therapy
CPT/HCPCS: 36415; 70450; 70498; 70551; 71045; 74018; 74176; 80048; 80053; 81001; 82248; 83605; 83735; 83880; 84443; 84484; 85025; 85027; 85379; 87040; 87086; 87088; 87635; 92526; 92610; 93005; 93306; 93880; 96365; 97162; 97166; 97530; 99285; C1758; J0696; J2543; Q9967

== ENCOUNTER 2021-09-24 04:01 | Emergency (ER) | payer MEDICARE, MEDICAID, SELFPAY ==
--- NOTE | ~2021-09-24 | CT_ITS ---
EXAMINATION: CT HEAD W/O IV CONTRAST CT CERVICAL SPINE W/O IV CONTRAST CLINICAL INFORMATION: Pain. COMPARISON: CT angiography neck from 09/17/2021. Head CT from 09/13/2021. TECHNIQUE: Head - Contiguous axial imaging of the head was performed from the skull base to the vertex without the administration of intravenous contrast, and axial images are reconstructed at 2 mm and 5 mm slice thickness. Cervical spine - A volumetric, helical CT acquisition of the cervical spine was obtained without contrast; in addition to the standard set of axial images, multiplanar reformatted images were provided in the coronal and sagittal imaging planes. This CT examination was performed using dose optimization techniques as appropriate, variously including the following: *Automated exposure control *Adjustment of mA and/or kV according to patient size (this includes techniques or standardized protocols for targeted exams where dose is matched to indication/reason for exam; i.e. extremities or head) *Use of iterative reconstruction technique DLP: 1040 mGy-cm (total) FINDINGS: HEAD: No intracranial hemorrhage, extra-axial fluid collection, focal mass effect or midline shift. Chronic small vessel ischemic changes within the supratentorial white matter. Old infarct in the high right frontal lobe. Otherwise, caputo-white matter differentiation is maintained. No evidence of an acute major vascular territory infarction. Mild parenchymal volume loss with commensurate prominence of ventricles and sulci. No hydrocephalus. The brainstem and cerebellum are unremarkable. The calvarium is intact. There is a small subgaleal hematoma of approximately 0.4 cm thickness in the parietal region of the scalp with overlying skin cinthya. The visualized paranasal sinuses and mastoid air cells are well aerated. There is atherosclerotic calcification of cavernous carotid arteries. No fracture or malalignment at either temporomandibular joint. The visualized orbits are intact. CERVICAL SPINE: No acute findings in the cervical spine compared to 09/17/2021. The craniocervical junction is normal. The vertebral body heights are normal. The dens and atlantodental articulation are intact. Mild multilevel discovertebral degenerative change of the cervical spine. Facet arthropathy of the cervical spine is predominantly noted on the left at C2-C3, C3-C4 and C4-C5. There is chronic minimal degenerative retrolisthesis of C4 on C5 and C5 on C6. No fracture or prevertebral soft tissue swelling. No evidence of spinal hematoma or fluid collection in the neck. There is atherosclerotic calcification of carotid arteries. Thyroid gland is unremarkable. No acute findings in the visualized lung apices. CT/CT cervical spine wo con IMPRESSION: * No intracranial hemorrhage or other acute intracranial pathology. * There is a small parietal region subgaleal hematoma of the scalp. No calvarial fracture. * No evidence of fracture or traumatic subluxation in the degenerated cervical spine.
--- NOTE | ~2021-09-24 | XR_ITS ---
EXAMINATION: XR CHEST XR LUMBAR SPINE XR HIP, BILATERAL CLINICAL INFORMATION: Fall with pain. COMPARISON: Chest radiograph 09/14/2021, CT angiogram neck 09/17/[address] abdomen/pelvis 09/12/2021. TECHNIQUE: Single view chest, 2 views lumbar spine, single view pelvis with 2 additional views each hip. FINDINGS: CHEST: The ascending aorta is again demonstrated to be mildly dilated. On the prior CT angiogram of the neck, this measured a maximum of 4.3 cm transverse dimension which is within normal limits for a patient of 86 years of age (upper limits of normal 4.5 cm). The heart size is normal. There is no evidence of CHF. The lungs appear hyperinflated suggesting underlying COPD. No acute infiltrates, effusions or lung masses are seen. LUMBAR SPINE: The AP film is rotated. The lateral film was taken, not erect, but in cross-table lateral fashion. Vertebral heights and disc spaces are well preserved. No bony destructive lesions are seen. Extensive aortoiliac vascular calcifications are seen. PELVIS AND HIPS: No pelvic or hip fractures are seen. Some mild degenerative changes are present in both hips with some supra-acetabular sclerosis. Extensive vascular calcifications are seen. XR/XR lumbar spine 2-3V IMPRESSION: No evidence of a traumatic osseous injury involving the chest, lumbar spine or pelvis and hips. Degenerative changes, as described above. No acute intrathoracic disease.
--- NOTE | ~2021-09-24 | XR_ITS ---
EXAMINATION: XR CHEST XR LUMBAR SPINE XR HIP, BILATERAL CLINICAL INFORMATION: Fall with pain. COMPARISON: Chest radiograph 09/14/2021, CT angiogram neck 09/17/[address] abdomen/pelvis 09/12/2021. TECHNIQUE: Single view chest, 2 views lumbar spine, single view pelvis with 2 additional views each hip. FINDINGS: CHEST: The ascending aorta is again demonstrated to be mildly dilated. On the prior CT angiogram of the neck, this measured a maximum of 4.3 cm transverse dimension which is within normal limits for a patient of 86 years of age (upper limits of normal 4.5 cm). The heart size is normal. There is no evidence of CHF. The lungs appear hyperinflated suggesting underlying COPD. No acute infiltrates, effusions or lung masses are seen. LUMBAR SPINE: The AP film is rotated. The lateral film was taken, not erect, but in cross-table lateral fashion. Vertebral heights and disc spaces are well preserved. No bony destructive lesions are seen. Extensive aortoiliac vascular calcifications are seen. PELVIS AND HIPS: No pelvic or hip fractures are seen. Some mild degenerative changes are present in both hips with some supra-acetabular sclerosis. Extensive vascular calcifications are seen. XR/XR chest 1V IMPRESSION: No evidence of a traumatic osseous injury involving the chest, lumbar spine or pelvis and hips. Degenerative changes, as described above. No acute intrathoracic disease.
--- NOTE | ~2021-09-24 | XR_ITS ---
EXAMINATION: XR CHEST XR LUMBAR SPINE XR HIP, BILATERAL CLINICAL INFORMATION: Fall with pain. COMPARISON: Chest radiograph 09/14/2021, CT angiogram neck 09/17/[address] abdomen/pelvis 09/12/2021. TECHNIQUE: Single view chest, 2 views lumbar spine, single view pelvis with 2 additional views each hip. FINDINGS: CHEST: The ascending aorta is again demonstrated to be mildly dilated. On the prior CT angiogram of the neck, this measured a maximum of 4.3 cm transverse dimension which is within normal limits for a patient of 86 years of age (upper limits of normal 4.5 cm). The heart size is normal. There is no evidence of CHF. The lungs appear hyperinflated suggesting underlying COPD. No acute infiltrates, effusions or lung masses are seen. LUMBAR SPINE: The AP film is rotated. The lateral film was taken, not erect, but in cross-table lateral fashion. Vertebral heights and disc spaces are well preserved. No bony destructive lesions are seen. Extensive aortoiliac vascular calcifications are seen. PELVIS AND HIPS: No pelvic or hip fractures are seen. Some mild degenerative changes are present in both hips with some supra-acetabular sclerosis. Extensive vascular calcifications are seen. XR/XR hips GAIL min 3V IMPRESSION: No evidence of a traumatic osseous injury involving the chest, lumbar spine or pelvis and hips. Degenerative changes, as described above. No acute intrathoracic disease.
[2021-09-24 04:12] VITALS: BP 124/73; BP 126/84; PULSE 84; PULSE 89; RESP 16; TEMP 37; O2SAT 94; O2SAT 95; BMI 26.1
--- NOTE | 2021-09-24 04:26 | ED.GENADULT ---
HPI - General Adult General Chief complaint: Fall Stated complaint: head lac/fall Time Seen by Provider: 09/24/21 04:05 Source: EMS Mode of arrival: EMS Limitations: other (Bosnian speaking) History of Present Illness HPI narrative: Patient comes to emergency room from a detention facility. Patient was recently discharged on September 18 for urinary retention, CVA, UTI and severe constipation. Seems that tonight, patient got out of bed, fell, hit the back of his head, patient has a laceration to the scalp, did not lose consciousness, not on blood thinners. Patient is Bosnian speaking, we tried getting an educational interpreter but even through our [employer] educational interpreter ipad, we were unable to get any educational interpreter. Patient's nurse speaks Lebanese/Slovak, they are able to communicate partially Related Data Previous Rx's Medication Instructions Recorded paroxetine HCl 20 mg tablet 20 mg PO BEDTIME #90 tabs 02/28/21 metoprolol succinate 25 mg 25 mg PO DAILY 90 days #90 tabs 05/19/21 tablet,extended release 24 hr ergocalciferol (vitamin D2) 1,250 1,250 mcg PO QWEEK #12 caps 05/20/21 mcg (50,000 unit) capsule simethicone 125 mg chewable tablet 125 mg PO TID-QID PRN abdominal 06/25/21 (Gas Relief (simethicone)) distention #90 tabs clonazepam 0.25 mg disintegrating 0.25 mg PO BID #60 tabs 07/29/21 tablet famotidine 20 mg tablet 20 mg PO DAILY PRN for indigestion 07/30/21 #90 tabs lactulose 10 gram/15 mL oral 10 g (15 mL) PO BEDTIME #237 mL 09/10/21 solution mirtazapine 7.5 mg tablet 7.5 mg PO BEDTIME #30 tabs 09/10/21 aspirin 81 mg tablet,delayed 81 mg PO DAILY 30 days #30 tabs 09/18/21 release atorvastatin 80 mg tablet 80 mg PO DAILY 30 days #30 tabs 09/18/21 docusate sodium 100 mg capsule 100 mg PO BID 30 days #60 caps 09/18/21 midodrine 5 mg tablet 5 mg PO TID #90 tabs 09/18/21 polyethylene glycol 3350 17 gram 17 g PO DAILY 30 days #30 ea 09/18/21 oral powder packet tamsulosin 0.4 mg capsule 0.4 mg PO DAILY 30 days #30 caps 09/18/21 Allergies Allergy/AdvReac Type Severity Reaction Status Date / Time No Known Allergies Allergy Verified 09/10/21 13:35 Review of Systems Review of Systems: Yes Other (We cannot find a [facility] educational interpreter) [facility] Past Medical History Medical History Chronic constipation Dementia Depression Full code status GERD (gastroesophageal reflux disease) H/O urinary retention HTN (hypertension) IBS (irritable bowel syndrome) Urethral stricture Weight loss Surgical History History of prostate surgery Family History Family History Father No problems noted. Mother No problems noted. Son No problems noted. Social History Social History Household Members Other:: lives with - adult children involved Housing: Apartment Alcohol intake: never Patient Tobacco Use Status: Former Tobacco user e-Cigarette/Vaping Use: Never Used Second Hand Smoke Exposure: No Advance Directives: No Advance Directives Information Provided: Yes service: No Current occupational status: retired Cognitive needs: No Hearing needs: No Vision needs: No Physical Exam ED Vital Signs: Vital Signs - 24 hr 09/24/21 04:12 Temperature 98.6 F Pulse Rate 89 Respiratory Rate 16 Blood Pressure 124/73 Pulse Oximetry 95 Oxygen Delivery Method Nasal Cannula with ETCO2 BMI result Body Mass Index 26.1 Const Other: Appearance: Alert. No acute distress. Eyes: Pupils equal, round and reactive to light. ENT: Pharynx normal. Neck: Normal inspection. Neck supple. No lymph nodes noted. No crepitus CVS: Normal heart rate and rhythm. Pulses normal. Normal S1 and S2 Respiratory: No respiratory distress. Breath sounds normal. No Wheezing. No rales Abdomen: Soft and nontender. No rigidity. No distention. Skin: Skin warm and dry. There is 5 cm laceration to the back of the scalp Extremities: No lower extremity edema. No Lacerations. No Rash Neuro: Oriented X 3. No motor deficit. No sensory deficit. Moving all extremities. No slurred speech. CN 2 through 12 grossly intact Psych: calm, cooperative, normal affect Course Course Course Narrative: Head CT and cervical CT spine pending. Patient opted to have lidocaine before the cinthya. Nine cinthya were applied to the patient's scalp. Patient tolerated the procedure well. It is unclear if patient is having hip pain or lumbar pain, were doing x-rays of both. X-rays will be taking after the C-spine it has cleared. Head CT and C-spine CT scans pending. Sign-out given to Dr. Mera Procedures Laceration Laceration 1: Site: scalp Size (cm): 6 Description: stellate and irregular Depth: simple, single layer Local Anesthetic: lidocaine 1% and with epi Amount of anesthesia used (mL): 10 Skin layer closed with: other (Cinthya) Size (cm): other Number of sutures: 9 Discharge Plan Discharge Clinical Impression: Fall, Laceration of scalp Instructions: Laceration (ED), Staple Care (ED) Prescriptions: No Action paroxetine HCl 20 mg tablet 20 mg PO BEDTIME Qty: 90 1RF metoprolol succinate 25 mg tablet extended release 24 hr 25 mg PO DAILY 90 Days Qty: 90 1RF Hold Instructions: MD to decide when to restart if SBP>140s within the next week. ergocalciferol (vitamin D2) 1,250 mcg (50,000 unit) capsule 1,250 mcg PO QWEEK Qty: 12 1RF clonazepam 0.25 mg tablet,disintegrating 0.25 mg PO BID Qty: 60 0RF Rx Instructions: administer 30 minutes before bedtime famotidine 20 mg tablet 20 mg PO DAILY PRN (Reason: for indigestion) Qty: 90 1RF atorvastatin 80 mg Tablet 80 mg PO DAILY 30 Days Qty: 30 0RF polyethylene glycol 3350 17 gram Powder In Packet 17 g PO DAILY 30 Days Qty: 30 0RF aspirin 81 mg Tablet,Delayed Release (Dr/Ec) 81 mg PO DAILY 30 Days Qty: 30 0RF tamsulosin 0.4 mg Capsule 0.4 mg PO DAILY 30 Days Qty: 30 0RF docusate sodium 100 mg Capsule 100 mg PO BID 30 Days Qty: 60 0RF midodrine 5 mg Tablet 5 mg PO TID Qty: 90 0RF lactulose 10 gram/15 mL solution 10 g PO BEDTIME Qty: 237 0RF mirtazapine 7.5 mg tablet 7.5 mg PO BEDTIME Qty: 30 0RF simethicone [Gas Relief (simethicone)] 125 mg tablet,chewable 125 mg PO TID-QID PRN (Reason: abdominal distention) Qty: 90 2RF
[2021-09-24] MEDS: Lidocaine HCl 1%/Epi 1:100,000 20 ML VIAL INFILTRATI (06:26)
[2021-09-24 07:39] VITALS: BP 113/63; PULSE 95; RESP 18; TEMP 36.8; O2SAT 95
[2021-09-24] MEDS: Acetaminophen 325 MG TABLET 975 MG PO (07:48)
--- NOTE | 2021-09-24 07:55 | PC.NURSE ---
pt is alert, speaks telugu. no c/o sob/rosana noted, upper resp congestion noted which is non-prod. lungs - cta all lobes. cinthya to post head, clean dry and intact. granado cath p&d yellow urine. pt to have imaging done.
[2021-09-24 09:22] VITALS: BP 120/54; PULSE 77; RESP 16; TEMP 36.3; O2SAT 97
--- NOTE | 2021-09-24 10:51 | PC.NURSE ---
rn to rn report given to keny chicas aware of plan of care for return/transfer to [facility].
== END 2021-09-24 10:52 | disposition home or self-care (01) ==
PROVIDERS: Emergency Provider Emergency Medicine
DX: S01.01XA Laceration without foreign body of scalp, initial encounter (principal); M54.2 Cervicalgia; M54.50 Low back pain, unspecified; G44.309 Post-traumatic headache, unspecified, not intractable; R07.89 Other chest pain; M25.552 Pain in left hip; M25.551 Pain in right hip; W06.XXXA Fall from bed, initial encounter; Y93.9 Activity, unspecified; Y92.122 Bedroom in nursing home as the place of occurrence of the external cause; Y99.9 Unspecified external cause status; Z79.899 Other long term (current) drug therapy
CPT/HCPCS: 12002; 70450; 71045; 72100; 72125; 73522; 99284